=== PATIENT | male | born 1935 | race Caucasian/White ===

== ENCOUNTER 2016-06-21 23:32 | Emergency (ER) | payer MEDICARE, BC ==
[2016-06-22] MEDS ORDERED: diphenhydrAMINE HCl 25 MG CAP ONE (00:39)
== END 2016-06-22 03:35 | disposition home or self-care (01) ==
LOC: MADERS 23:32
DX: T63.461A Toxic effect of venom of wasps, accidental (unintentional), initial encounter (principal); K21.9 Gastro-esophageal reflux disease without esophagitis; I10 Essential (primary) hypertension; F17.210 Nicotine dependence, cigarettes, uncomplicated
CPT/HCPCS: 96372; J1040

== ENCOUNTER 2018-04-16 13:26 | Inpatient (IN) | payer MEDICARE, BC ==
[~2018-04-16 13:26] MED LIST: Sodium Chloride 0.9% 1,000 ML BAG ONE
[2018-04-16 14:06] LABS: Bilirubin Negative (Negative); Blood, Urine Negative (Negative); Clarity Clear (Clear); Glucose, Urine (Dipstick) Negative (Negative); Leukocyte Negative (Negative); Nitrite Negative (Negative); Protein, Urine (Dipstick) Negative (Neg-Trace); Specific Gravity, Urine 1.015 (1.005-1.030); pH, Urine 7.5 (5.0-9.0)
[2018-04-16 14:18] LABS: #Basophils 0.1 thou/uL (0.0-0.2); #Lymphocytes 0.9 thou/uL (1.20-3.40); #Monocytes 0.5 thou/uL (0.11-0.59); #Neutrophils 3.9 thou/uL (1.40-6.50); %Basophils 1.2 % (0.0-1.0); %Eosinophils 0.6 % (0.0-10.0); %Lymphocytes 16.6 % (21.0-51.0); %Monocytes 9.2 % (0.0-10.0); %Neutrophils 72.4 % (42.0-75.0); Hemoglobin 11.8 g/dL (14.0-18.0); MDiff Complete? YES; Macrocytosis SLIGHT = 6-15 cells (100X) (0-5/hpf); Mean Corpuscular HGB CONC 34.6 g/dL (32.0-36.0); Mean Corpuscular Hemoglobin 36.1 pg (27.0-31.0); Mean Corpuscular Volume 104.4 fL (78.0-98.0); Mean Platelet Volume 4.9 fL (7.4-10.4); PLT Morphology Comment Appears Adequate; Platelet Count 361 thou/uL (130-400); RBC Distribution Width 12.6 % (11.5-14.5); Red Blood Cell (RBC) Count 3.26 mill/uL (4.70-6.10); White Blood Cell (WBC) Count 5.3 thou/uL (4.8-10.8)
[2018-04-16 14:25] LABS: ALT (SGPT) 15 U/L (8-55); AST (SGOT) 28 U/L (5-34); Albumin 4.2 g/dL (3.4-4.8); Alkaline Phosphatase 69 U/L (40-150); Anion Gap 15 mmol/L (10-20); BUN (Urea Nitrogen) 23 mg/dL (8.4-25.7); Bilirubin, Total 0.9 mg/dL (0.2-1.2); Calc. Creatinine Clearance 0 mL/min (70-130); Calcium 9.3 mg/dL (7.8-10.44); Carbon Dioxide 25 mmol/L (23-31); Chloride 90 mmol/L (98-107); Estimated GFR-MDRD 49; Globulin 3.7 g/dL (2.4-3.5); Glucose 90 mg/dL (83-110); Potassium 4.3 mmol/L (3.5-5.1); Protein, Total 7.9 g/dL (5.8-8.1); Sodium 126 mmol/L (136-145)
--- NOTE | 2018-04-16 14:59 | CT ---
CT BRAIN WITHOUT CONTRAST: Date: 04/16/18 HISTORY: Fall. No loss of consciousness. Headache. FINDINGS: Comparison made with exam of 12/09/12. There are changes of cortical atrophy and chronic small vessel ischemic disease. The ventricular size is appropriate and the basilar cisterns are patent. No evidence of acute infarct, hemorrhage, midline shift, or abnormal extra-axial fluid collections ar e seen. The bony calvarium is intact. The visualized paranasal sinuses and mastoid air cells are well aerated. 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 This was seen on previous studies. IMPRESSION: No CT evidence of acute intracranial process. POS: OFF
--- NOTE | 2018-04-16 15:16 | RAD ---
PA AND LATERAL CHEST: History: Fever. History of injury. FINDINGS: Heart size is within normal limits. There are arthrosclerotic changes of the aorta. The lungs appear clear of any infiltrative process. Post-operative changes of the left shoulder is seen. There are art hritic changes of the spine. IMPRESSION: No acute findings. POS: C
--- NOTE | 2018-04-16 15:20 | CT ---
CT FACIAL BONES: Date: 04-16-18 Comparison: None. History: Fall. Trauma. Pain. Technique: Axial CT imaging obtained at 2.5 mm intervals through the facial bones without contrast. C oronal and sagittal reformatted imaging obtained. FINDINGS: The frontal sinuses, maxillary sinuses, sphenoid sinuses, and ethmoid air cells are well aerated. The mastoid air cells are well aerated. The nasal bones, zygomatic arches, and pterygoid plates appear intact with no evidence for acute frac ture or dislocation. Temporomandibular joints appear within normal limits. The mandible and the maxil la demonstrate no evidence for acute fracture. There is mild anterolisthesis of C2 on C3 and there is multilevel degenerative change involving the i bharath cervical spine with bilateral facet hypertrophy and multilevel disc space narrowing, better ass essed on the cervical spine CT, also performed 04-16-18. There is prominent atherosclerotic calcification involving the distal CCA and the proximal ICA bilate rally, left greater than right. Coronal reformatted imaging demonstrates no evidence for fracture of the orbital floor or medial orbi herminio wall on either side. IMPRESSION: 1. Incidental findings as detailed above. No displaced facial bone fracture. POS: [facility]
--- NOTE | 2018-04-16 15:21 | RAD ---
AP PELVIS: History: Fall with pelvic pain. FINDINGS: Pelvic ring appears intact with no evidence of fracture. SI Joints are symmetric. There are marked ar thritic changes to the lower lumbar spine. Vascular calcifications are present. IMPRESSION: No acute injury. POS: C
--- NOTE | 2018-04-16 15:26 | CT ---
CT OF CERVICAL SPINE PERFORMED WITHOUT CONTRAST ENHANCEMENT: HISTORY: Neck pain status post fall. FINDINGS: Vertebral bodies are normal in height. The bones appear demineralized. There is marked degenerative disk narrowing at all the vertebral body levels. There are degenerative facet changes present. The facets are in normal alignment. At C2-3, there is minimal anterolysis and a mild degree of canal stenosis and mild bilateral foramina l narrowing. There is mild bilateral foraminal stenosis at C3-4 and marked right-sided foraminal mehdi rowing at C4-5. A C5-6, there is a moderately severe canal stenosis and marked bilateral foraminal n arrowing, left greater than right. At C67, there is mild bilateral foraminal narrowing. There is no CT evidence for a fracture. The lung apices show some emphysematous-type change. Carotid bulb calcifications are noted. IMPRESSION: No CT evidence of fracture of the cervical spine. POS: [facility]
[2018-04-16] MEDS ORDERED: Acetaminophen 325 MG TAB PO PRN (16:57)
[2018-04-16 18:25] VITALS: BMI 23.1
[2018-04-16] MEDS: Sodium Chloride 0.9% 1,000 ML IV SCH (18:57)
--- NOTE | 2018-04-17 00:14 | HP ---
PRIMARY CARE PHYSICIAN: Dr. Sevilla. CHIEF COMPLAINT: Fall on 04/10/2018. HISTORY OF PRESENT ILLNESS: This is a pleasant 82-year-old male with past medical history significant for gastroesophageal reflux disease and benign prostatic hypertrophy who drove himself to the emergency room due to concern related to a fall that occurred on Friday of last week. The patient states he is not sure how he fell, but states that he hit his hip area. He states he has not had any pain or difficulty walking since then, but states he fractured his wrist in the past and it wasn't painful, so he wanted to be sure. No family is immediately available at the bedside. The patient does live at home by himself and reports that in the last month, he has actually had a total of 4 falls. He states this is not normal for him and states that sometimes he seems to get off balance and that he has been trying to modify things at home to keep him falling, but nonetheless has fallen at least 4 times. The patient at present actually has no complaints. He states he feels just fine. He is not complaining of any pain, dizziness, confusion, syncope, shortness of breath, chest pain, abdominal pain, nausea, vomiting or change in bowel movements. In the emergency room, he was found to have a very low sodium level as well as vital signs consistent with orthostatic hypotension and therefore was recommended for inpatient admission for further treatment and evaluation. PAST MEDICAL HISTORY: 1. Gastroesophageal reflux disease. 2. Benign prostatic hypertrophy. 3. History of lung nodule. PAST SURGICAL HISTORY: The patient could not recall his surgeries, med records indicate: 1. Left shoulder arthroscopic surgery. 2. Pilonidal cyst removal. 3. Hernia repair. SOCIAL HISTORY: The patient lives alone. His medical history does indicate some past history of possible alcohol dependence, but at present, the patient states he drinks only glass of wine every few days. He states he rarely drinks more than 1 glass of wine at a time. The patient does smoke about a pack a day of cigarettes. ALLERGIES: NO KNOWN DRUG ALLERGIES. FAMILY HISTORY: Noncontributory. MEDICATIONS: 1. Omeprazole 20 mg p.o. daily. 2. Terazosin - unknown dose REVIEW OF SYSTEMS: A 10-point review of systems is reviewed and negative as reported above. PHYSICAL EXAMINATION: VITAL SIGNS: Temperature is 97.4, blood pressure 126/73, heart rate 72, respirations 18, O2 saturations 98% on room air. GENERAL: The patient is alert and oriented x3. He is calm, cooperative, in no apparent distress and answering questions appropriately. HEENT: Pupils are equally round and reactive to light. Sclerae are nonicteric. Oropharynx is mildly dry without any erythema or exudates. NECK: Supple without lymphadenopathy or thyromegaly. CARDIOVASCULAR: Heart has regular rate and rhythm with no murmurs. LUNGS: Clear to auscultation bilaterally. No wheezing, rales or rhonchi. ABDOMEN: Soft, nontender, and nondistended with normoactive bowel sounds. EXTREMITIES: Negative for any clubbing, cyanosis, or edema. SKIN: Mildly dry. Right eye has some healing bruising around the periorbital area, but no tenderness to palpation. He has scattered abrasions on his extremities, but no significant ecchymosis or swelling otherwise. NEUROLOGIC: Cranial nerves 2 through 12 are grossly intact. Gait is unsteady. He uses a cane for gait stabilization, but no focal deficits. LABORATORY DATA AND IMAGING DATA: CBC with white blood cell of 5.3, hemoglobin of 11.8, hematocrit 34.1, platelets of 361. Chemistry panel reveals sodium of 126, potassium of 4.3, chloride 90, bicarbonate 25, BUN 23, creatinine 1.39, glucose is 90, lactic acid is 1.2. Liver function testing is all normal. TSH is normal at 0.847. Brain CT scan, facial bone CT scan, cervical spine CT scan, pelvis x- ray and chest x-ray were all reported as normal. EKG was unremarkable for any acute findings. The patient does have some arthritic changes on his images. ASSESSMENT AND PLAN: 1. Symptomatic hyponatremia. Per record review, the patient does appear to have a history of this over the last few years with sodium level ranging anywhere between 130 and 133 over the last 3 or 4 years. The patient, in his history, has a documented alcohol dependence, although the patient denies that at this time. The patient also admits to not drinking very much water and does appear on the dry side on examination. We will admit the patient to the inpatient medical surgical unit for IV fluids and repeat metabolic panel in the morning. I suspect that this is mostly dietary related. 2. Orthostatic hypotension. Per report from the emergency room doctor, his orthostatic vital signs were positive with at least a 10-point increase in his pulse with sitting and a significant drop in his blood pressure from the supine position. The patient did get somewhat symptomatic with this. This could be related to his hyponatremia and volume depletion and therefore, we will start him on IV fluids overnight here as well as hold his alpha rafael that he is on for his prostate as this could be contributing as well. 3. Frequent falls. The patient reports 4 falls in the last month. He lives independently and no family is immediately available for further discussion of this. The patient just basically states that he gets off balance at times and falls. I would suggest having physical therapy come to evaluate him and possibly consider him for a swing bed admission once medically stabilized versus outpatient physical therapy. We will see what physical therapy has to say in the morning. He will be on fall risk precautions for now. 4. Benign prostatic hypertrophy. We will hold his medication right now as it could potentially be contributing to that orthostatic hypotension and consider switching them to an alternative medication upon discharge. 5. Gastroesophageal reflux disease. We will continue the patient on a PPI daily. 6. Macrocytic anemia. The patient has a history of this in the past and is near his baseline of 11 to 12. He has not had a recent B12 and folic acid level checked and we will check that to be drawn in the morning. 7. Renal insufficiency. The patient will be given gentle IV fluid hydration and repeat labs in the morning. I suspect this is due to mild volume depletion. DISPOSITION: This is an 82-year-old male with past medical history significant for gastroesophageal reflux disease and benign prostatic hypertrophy that presents with frequent falls, symptomatic hyponatremia and orthostatic hypotension. We will be giving him IV fluids and I anticipate him needing at least a 2-night midnight stay given his age and severity of illness at presentation. He will possibly require a swing bed admission thereafter for continued physical therapy and occupational therapy, but we will reevaluate this on a daily basis. The patient will be on SCDs for deep venous thrombosis prophylaxis and is currently full code and we will discuss this further with the family once they arrive. Job ID: [id number] MTDD
[2018-04-17 05:20] LABS: Anion Gap 12 mmol/L (10-20); BUN (Urea Nitrogen) 22 mg/dL (8.4-25.7); Calc. Creatinine Clearance 58 mL/min (70-130); Calcium 8.4 mg/dL (7.8-10.44); Carbon Dioxide 23 mmol/L (23-31); Chloride 98 mmol/L (98-107); Estimated GFR-MDRD 64; Glucose 75 mg/dL (83-110); Potassium 4.2 mmol/L (3.5-5.1); Sodium 129 mmol/L (136-145)
[2018-04-17 05:28] LABS: #Basophils 0.1 thou/uL (0.0-0.2); #Eosinphils 0.2 thou/uL (0.0-0.7); #Lymphocytes 1.2 thou/uL (1.20-3.40); #Monocytes 0.5 thou/uL (0.11-0.59); #Neutrophils 2.5 thou/uL (1.40-6.50); %Basophils 1.4 % (0.0-1.0); %Eosinophils 3.7 % (0.0-10.0); %Lymphocytes 26.2 % (21.0-51.0); %Monocytes 11.8 % (0.0-10.0); %Neutrophils 56.9 % (42.0-75.0); Anisocytosis SLIGHT = 6-15 cells (100X) (0-5/hpf); Hemoglobin 9.8 g/dL (14.0-18.0); Hypochromia MODERATE=16-30 cells (100X) (0-5/hpf); MDiff Complete? YES; Mean Corpuscular HGB CONC 35.2 g/dL (32.0-36.0); Mean Corpuscular Hemoglobin 36.6 pg (27.0-31.0); Mean Corpuscular Volume 103.8 fL (78.0-98.0); Mean Platelet Volume 5.1 fL (7.4-10.4); PLT Morphology Comment Appears Adequate; Platelet Count 284 thou/uL (130-400); Poikilocytosis SLIGHT = 6-15 cells (100X) (0-5/hpf); RBC Distribution Width 12.4 % (11.5-14.5); RBC Morphology Abnormal; Red Blood Cell (RBC) Count 2.67 mill/uL (4.70-6.10); White Blood Cell (WBC) Count 4.4 thou/uL (4.8-10.8)
[2018-04-17] MEDS: Sodium Chloride 0.9% 1,000 ML IV SCH (05:39)
[2018-04-17 08:33] VITALS: BP 159/78; TEMP 97.6
[2018-04-17 12:50] LABS: Folate (Folic Acid) 15.3 ng/mL (7.0-31.4)
--- NOTE | 2018-04-17 13:42 | DIS ---
DATE OF ADMISSION: 04/16/2018 DATE OF DISCHARGE: 04/17/2018 PRIMARY CARE PHYSICIAN: Leo Sevilal MD. PRIMARY DIAGNOSIS: Symptomatic hyponatremia. SECONDARY DIAGNOSES: 1. Orthostatic hypotension. 2. Frequent falls. 3. Macrocytic anemia. 4. Chronic alcohol use. 5. Benign prostatic hypertrophy. 6. Gastroesophageal reflux disease. HOSPITAL COURSE: This is a pleasant 82-year-old male, who presented to the emergency room with concern over recent fall that occurred on Friday of last week. The patient states he was not having any pain or weakness, but since his fall, he wanted to make sure that he did not have anything fractured. Extensive imaging studies were done in the emergency room, that all resulted as normal. On his laboratory evaluation, he was found to have a significant hyponatremia at 126 with mild renal insufficiency with creatinine of 1.39. The patient had reported that he has had increasing falls over the last month falling on at least 4 or 5 occasions. Decision was made to admit for further treatment of his symptomatic hyponatremia and positive orthostatic vital signs in the emergency room. The patient was given IV fluids at 75 mL an hour with resolution of his symptoms this morning. The patient states today that, he is adamant, he would like to return home. He does not want to stay in the hospital any longer. The patient denies any dizziness or unbalance. Physical Therapy did see the patient and noted that he is quite unsteady on his feet, but that would benefit from a cane or walker for gait stabilization. I have called the patient's son, Chuck Whitfield, who is also the power of estate planning attorney, and the son is requesting for discharge as well, so that the patient can resume doing home healthcare physical therapy, which he did last year and worked very well for him. I discussed with the son that his chronic alcohol use and decreased water intake are likely what caused his low sodium levels and I recommend minimizing alcohol intake as much as possible and increase water intake. The son is on his way to the hospital and will be working with the primary care physician to arrange getting the home healthcare services and physical therapy services set up again through his PCP. By day of discharge, the patient is ambulating independently and at his baseline mentation status with no concerns. Vital signs have remained stable since admission. MEDICATIONS UPON DISCHARGE: The patient will resume: 1. Omeprazole 20 mg p.o. daily. 2. Flomax 0.4 mg p.o. daily. DIET UPON DISCHARGE: Resume a regular diet with recommendations for decreased alcohol intake. ACTIVITIES UPON DISCHARGE: Fall risk precautions with encouraging the patient to use cane for gait stabilization. FOLLOWUP: The patient will need to see his primary care physician in 1 to 2 weeks as well as start physical therapy on an outpatient basis. PCP will need to follow up on pending B12 and folate levels. Job ID: [id number] [facility]WORK[facility]
== END 2018-04-17 15:05 | disposition home health service (06) | DRG 641 ==
LOC: MADERS 13:26 → MADMS 16:24
PROVIDERS: ADMIT Family Medicine; ATTEND Family Medicine
DX: E87.1 Hypo-osmolality and hyponatremia (principal); I95.1 Orthostatic hypotension; N40.0 Benign prostatic hyperplasia without lower urinary tract symptoms; N28.9 Disorder of kidney and ureter, unspecified; F10.10 Alcohol abuse, uncomplicated; D53.9 Nutritional anemia, unspecified; R29.6 Repeated falls; K21.9 Gastro-esophageal reflux disease without esophagitis; I10 Essential (primary) hypertension; F17.210 Nicotine dependence, cigarettes, uncomplicated; Z98.890 Other specified postprocedural states
CPT/HCPCS: 36415; 70450; 70486; 71046; 72125; 72170; 80048; 80053; 81003; 82607; 82746; 83605; 84443; 85025; 93005; 94760; 96360; J7050

== ENCOUNTER 2018-07-11 14:34 | Emergency (ER) | payer MEDICARE, BC ==
[~2018-07-11 14:34] MED LIST changes: +Dextrose 5 % And 0.9 % NaCl 1000 ml Bag ONE; -Sodium Chloride 0.9% 1,000 ML BAG ONE
[2018-07-11 15:16] LABS: Bilirubin Negative (Negative); Blood, Urine Negative (Negative); Clarity Clear (Clear); Glucose, Urine (Dipstick) Negative (Negative); Leukocyte Negative (Negative); Nitrite Negative (Negative); Protein, Urine (Dipstick) Negative (Neg-Trace)
--- NOTE | 2018-07-11 15:23 | RAD ---
RIGHT FEMUR 2 VIEWS: Date: 07/11/18 HISTORY: Injury to leg. FINDINGS: There is an intertrochanteric fracture of the right hip with associated coxa vara deformity. Vascular calcifications are present. IMPRESSION: Intertrochanteric fracture of right hip. POS: [facility]
--- NOTE | 2018-07-11 15:31 | RAD ---
PORTABLE CHEST: Date: 07/11/18 HISTORY: Cough. COMPARISON: 07/16/08. FINDINGS: Heart size within normal limits. There are atherosclerotic changes of aorta. Lungs are clear of any i nfiltrates. IMPRESSION: No active intrathoracic disease. POS: [facility]
[2018-07-11 15:35] LABS: ALT (SGPT) 34 U/L (8-55); AST (SGOT) 158 U/L (5-34); Albumin 3.3 g/dL (3.4-4.8); Alkaline Phosphatase 37 U/L (40-150); Anion Gap 19 mmol/L (10-20); BUN (Urea Nitrogen) 46 mg/dL (8.4-25.7); CK (CPK) 2770 U/L (30-200); Calc. Creatinine Clearance 0 mL/min (70-130); Calcium 7.8 mg/dL (7.8-10.44); Carbon Dioxide 22 mmol/L (23-31); Chloride 91 mmol/L (98-107); Estimated GFR-MDRD 19; Globulin 2.4 g/dL (2.4-3.5); Glucose 77 mg/dL (83-110); Potassium 4.9 mmol/L (3.5-5.1); Protein, Total 5.7 g/dL (5.8-8.1); Sodium 127 mmol/L (136-145)
[2018-07-11 15:51] LABS: #Basophils 0.1 thou/uL (0.0-0.2); #Lymphocytes 0.6 thou/uL (1.20-3.40); #Monocytes 1.4 thou/uL (0.11-0.59); #Neutrophils 8.9 thou/uL (1.40-6.50); %Basophils 0.7 % (0.0-1.0); %Lymphocytes 5.4 % (21.0-51.0); %Monocytes 12.5 % (0.0-10.0); %Neutrophils 81.4 % (42.0-75.0); Hemoglobin 8.3 g/dL (14.0-18.0); Hypochromia SLIGHT = 6-15 cells (100X) (0-5/hpf); MDiff Complete? YES; Macrocytosis SLIGHT = 6-15 cells (100X) (0-5/hpf); Mean Corpuscular HGB CONC 34.8 g/dL (32.0-36.0); Mean Corpuscular Hemoglobin 35.8 pg (27.0-31.0); Mean Corpuscular Volume 102.6 fL (78.0-98.0); Mean Platelet Volume 4.9 fL (7.4-10.4); Platelet Count 318 thou/uL (130-400); Polychromasia SLIGHT = 2-3 cells (100X) (0-2/hpf); RBC Distribution Width 14.4 % (11.5-14.5); Red Blood Cell (RBC) Count 2.31 mill/uL (4.70-6.10); White Blood Cell (WBC) Count 10.9 thou/uL (4.8-10.8)
[2018-07-11 16:26] LABS: CKMB 17.3 ng/mL (0-6.6)
--- NOTE | 2018-07-11 16:38 | CT ---
CT OF BRAIN PERFORMED WITHOUT CONTRAST ENHANCEMENT: 07/11/18 HISTORY: Altered mental status. Fall two days ago with head injury. COMPARISON: 04/16/18 study. There is marked generalized ventricular and sulcal prominence. There is decreased attenuation of the periventricular white matter. There is no signs of intracerebral hemorrhage or extra-axial fluid ba ections. The mastoid air cells and visualized sinuses are clears. IMPRESSION: No acute intracranial abnormalities. POS: [facility]
[2018-07-11] MEDS ORDERED: Aspirin 300 MG Suppository ONE (16:49)
== END 2018-07-11 17:23 | disposition short-term general hospital (02) ==
LOC: MADERS 14:34
DX: S72.141A Displaced intertrochanteric fracture of right femur, initial encounter for closed fracture (principal); I21.4 Non-ST elevation (NSTEMI) myocardial infarction; E87.1 Hypo-osmolality and hyponatremia; R41.82 Altered mental status, unspecified; K21.9 Gastro-esophageal reflux disease without esophagitis; I10 Essential (primary) hypertension; F17.210 Nicotine dependence, cigarettes, uncomplicated; E16.2 Hypoglycemia, unspecified; W18.30XA Fall on same level, unspecified, initial encounter
CPT/HCPCS: 36415; 36416; 70450; 71045; 80053; 81003; 82550; 82553; 84443; 84484; 85025; 93005; 96360; 96361; J7042

== ENCOUNTER 2018-07-16 11:49 | Inpatient (IN) | payer MEDICARE, BC ==
[2018-07-16] MEDS ORDERED: Prevnar 13-Val Conj/PF 0.5 ML SYRINGE IM ONE (15:30)
[2018-07-16] MEDS ORDERED: TESTOSTERONE CYPIONATE IM SCH (18:15)
[2018-07-16] MEDS: Mometasone/Formoterol 60 PUFF AER INH SCH (20:00)
[2018-07-16] MEDS: Nicotine 7 MG PATCH TOP SCH (20:01)
[2018-07-16] MEDS: Acetaminophen 500 MG TAB PO SCH (20:02)
[2018-07-16] MEDS: Aspirin 81 mg Enteric Coated Tablet PO SCH (20:04)
[2018-07-16] MEDS ORDERED: Ventolin HFA Inhaler 60 PUFF INHALER INH PRN (21:00)
--- NOTE | 2018-07-16 23:51 | HP ---
PRIMARY CARE PHYSICIAN: Leo Sevilla MD REASON FOR ADMISSION: Skilled rehab in [facility] Swing Bed after recent surgery. HISTORY OF PRESENT ILLNESS AND HOSPITAL COURSE: Mr. Whitfield is an 82-year- old male, who has a significant history of chronic hyponatremia, alcohol abuse, and hypertension. He lives by himself in [place]. History was taken from his son, who was present at the time of admission. Son reports that the patient's baseline functional status is, he lives independently, but with some unsteadiness of gait. He occasionally uses his cane, but not consistently. The son reports that when he tried to call the patient last week, on , the patient did not answer until the next day, which is unusual. The son went to the patient's house where he lives and found that the patient was on the floor in his bedroom. The son reports that he would probably been down on the floor for about 48 to 72 hours without movement. The patient was then sent to the ER, wherein he was found to have significant dehydration, as well as right intertrochanteric femoral fracture, as well as rhabdomyolysis. The patient was medically stabilized. Ortho was consulted. The patient underwent repair of the right intertrochanteric femoral fracture with TFN nail to the right proximal femoral on 07/14/[address] Vann. Postoperatively, the patient did well. Postoperative complications include acute anemia, wherein he was transfused with 1 unit of packed red blood cells. Overall, his electrolytes, renal function, and CK were improving with medical therapy. Physical therapy and occupational therapy were started in the hospital prior to transfer. There was also mention of delirium postoperatively. His Celexa was continued. He was also taking Flomax and Avodart was added to his current medications for BPH. The patient was discharged to swing bed with his Wen catheter due to persistent urinary retention. He was transferred to [place] to continue therapy prior to going back to the home environment. PAST MEDICAL HISTORY: GERD, prostate problem, hypertension, chronic hyponatremia, chronic alcoholism, unsteadiness of gait, history of falls at home , anxiety, and depression. PAST SURGICAL HISTORY: Left shoulder. SOCIAL HISTORY: The patient lives alone in [place]. Smokes a pack a day for the last 60 years. Chronic alcohol use. Son is the power of assistant attorney general, who lives in [place], but is actively involved in patient's care. ALLERGIES: NKDA. MEDICATIONS: 1. Acetaminophen 5000 one to two tablets q.6 hours p.r.n. 2. Albuterol HFA 2 puffs inhaled q.4 hours p.r.n. 3. Ascorbic acid 500 mg p.o. b.i.d. 4. Aspirin 81 mg p.o. b.i.d. 5. Symbicort 160/4.5, one puff inhaled b.i.d. 6. Citalopram 20 mg p.o. daily. 7. Avodart 0.5 mg p.o. daily. 8. Ferrous sulfate 325 mg p.o. b.i.d. 9. Folic acid 1 mg p.o. daily. 10. Nicotine patch 14 mg TD q.24 hours. 11. Omeprazole 40 mg p.o. daily. 12. Tamsulosin 0.4 mg p.o. daily. 13. Testosterone cypionate 1.5 mL IM q.14 days. 14. Tramadol 50 mg p.o. q.6 hours p.r.n. REVIEW OF SYSTEMS: Limited secondary to the patient's hard of hearing. Otherwise, the son, who helps with the history, reports that the patient remains generally weak with decreased appetite, but getting better, previously continent of bowel and bladder. No significant chest pain, shortness of breath, pain with breathing, orthopnea, nausea, vomiting, abdominal pain, diarrhea, or rectal bleeding. Reports history of constipation. No black tarry stools. No focal paralysis or paresthesia. The rest of the review of system as per HPI. RECENT LAB/TESTS: Echocardiogram on 07/12/2018, EF 50% to 55%, grade 1/3 diastolic dysfunction. Mildly dilated left atrium. Mitral annular calcification is present. Trace mitral regurgitation, aortic valve sclerosis, but opens well. Mild tricuspid regurgitation, elevated right ventricular systolic pressure, estimated 43 mmHg. Abdominal x-ray, moderate stool burden, no acute intraabdominal abnormality on 07/15/2018. On 07/15/2018, CBC; WBC 7.3, hemoglobin 8.5, hematocrit 24.9, platelets 329. On 07/14/2018, CBC; hemoglobin 7.2, hematocrit 20.8, platelets 318. CK on 07/14, 506. CK on 07/13/2018, 953, CK-MB was 9.4. 07/15/2018, BMP; sodium 130, potassium 3.7, BUN 20, creatinine 0.97, estimated GFR 74, glucose 81, calcium 7.7, phosphorus 2.6, magnesium 1.8. Urine negative. Toxicology, salicylate less than 8, acetaminophen less than 6, plasma alcohol less than 10. PHYSICAL EXAMINATION: VITAL SIGNS: Blood pressure 175/79, temp 97.8, pulse 83, respiration 18, O2 saturations 95%, weight 138 pounds, height 6 feet 8 inches, BMI 18.7. GENERAL: The patient is awake, alert, oriented, but hard of hearing. He answers with appropriateness if he hears the question/s appropriately. HEENT: Normocephalic and atraumatic. PERRL. Intact EOM. Nonicteric sclera. Oral mucosa is moist. NECK: Supple. No LAD. No JVD. No bruit. CHEST: Normal excursion. Clear to auscultation bilaterally. CARDIAC: RRR. Normal S1 and S2. ABDOMEN: Flat, soft. Normoactive bowel sounds. Nondistended, nontender. No rebound. No guarding. Negative CVA tenderness bilaterally. EXTREMITIES: No edema. No cyanosis. SKIN: Postoperative site in the right femur is intact and no surrounding erythema. No drainage. No edema. Multiple bruises noted (refer to the wound photo for details) and pressure ulcer stage II on the right medial knee and left medial knee. NEURO: Nonfocal. Moves all extremities symmetrically. Gait, unsteady. DTRs 2 +. PSYCH: Appears calm with appropriate demeanor and affect. ASSESSMENT: 1. Deconditioning secondary to general weakness. 2. Right intertrochanteric femoral fracture, status post repair on 07/14/2018. 3. Rhabdomyolysis, resolving. 4. Dehydration, resolved. 5. Chronic macrocytic anemia superimposed with acute anemia secondary to blood loss, requiring blood transfusion. 6. Chronic hyponatremia, mild, asymptomatic. 7. History of chronic alcohol use. 8. Acute on chronic renal injury, improved. 9. Acute hypokalemia, improved. 10. Acute hypophosphatemia, improved. 11. Acute hypomagnesemia, improved. 12. Anxiety. 13. Depression. 14. Benign prostatic hyperplasia, with obstructive symptoms, requiring insertion of indwelling urinary catheter. 15. Abnormality of gait and immobility secondary to imbalance. PLAN: The patient is admitted to [facility] for purposes of skilled rehab. PT/OT eval and treat. Weightbearing status, 50% weightbearing on the right lower extremities. Routine wound care, postoperative wound care and pressure ulcer care. Continue all current medications as modified per list.. DVT prophylaxis with aspirin. CODE STATUS: Son reports and confirms DO NOT ATTEMPT RESUSCITATION. ESTIMATED LENGTH OF STAY: 2-3 weeks. Further recommendations depending on the hospital course. Job ID: [id number] MTDD
[2018-07-17 01:45] LABS: Bilirubin Negative (Negative); Blood, Urine Trace (Negative); Clarity Clear (Clear); Glucose, Urine (Dipstick) Negative (Negative); Leukocyte Small (Negative); Nitrite Negative (Negative); Protein, Urine (Dipstick) Trace mg/dL (Neg-Trace); Specific Gravity, Urine 1.015 (1.005-1.030); pH, Urine 6.5 (5.0-9.0)
[2018-07-17 01:52] LABS: RBC/HPF 0-3 HPF (0-3); Squamous Epithelial 0-3 HPF (0-3)
[2018-07-17 01:53] LABS: Bacteria/HPF Rare-Few HPF (None Seen); Hyaline Casts/LPF NONE SEEN LPF (0-3 Hyaline)
[2018-07-17] MEDS: Acetaminophen 500 MG TAB PO SCH ×4 (03:44→20:57)
[2018-07-17] MEDS: Mometasone/Formoterol 60 PUFF AER INH SCH ×2 (07:46→18:26)
[2018-07-17] MEDS: Aspirin 81 mg Enteric Coated Tablet PO SCH ×2 (09:21→20:58)
[2018-07-17] MEDS: Ascorbic Acid 500 mg Chewable Tablet PO SCH ×2 (09:21→17:05)
[2018-07-17] MEDS: Citalopram 20 MG TAB PO SCH (09:21)
[2018-07-17] MEDS: Dutasteride 0.5 MG CAP PO SCH (09:21)
[2018-07-17] MEDS: Ferrous Sulfate 325 MG TAB PO SCH ×2 (09:21→17:05)
[2018-07-17] MEDS: Tamsulosin HCl 0.4 MG CAP PO SCH (09:21)
[2018-07-17] MEDS: Folic Acid 1 MG TAB PO SCH (09:22)
[2018-07-17] MEDS: traMADol HCl 50 MG TAB PO PRN (10:44)
[2018-07-17] MEDS: Nicotine 7 MG PATCH TOP SCH (18:26)
[2018-07-18] MEDS: Acetaminophen 500 MG TAB PO SCH ×4 (04:41→20:23)
[2018-07-18] MEDS: Mometasone/Formoterol 60 PUFF AER INH SCH ×2 (08:19→18:16)
[2018-07-18] MEDS: Dutasteride 0.5 MG CAP PO SCH (08:20)
[2018-07-18] MEDS: Folic Acid 1 MG TAB PO SCH (08:21)
[2018-07-18] MEDS: Ferrous Sulfate 325 MG TAB PO SCH ×2 (08:21→17:01)
[2018-07-18] MEDS: Aspirin 81 mg Enteric Coated Tablet PO SCH ×2 (08:21→20:24)
[2018-07-18] MEDS: Citalopram 20 MG TAB PO SCH (08:21)
[2018-07-18] MEDS: Ascorbic Acid 500 mg Chewable Tablet PO SCH ×2 (08:21→17:01)
[2018-07-18] MEDS: Tamsulosin HCl 0.4 MG CAP PO SCH (08:21)
[2018-07-18] MEDS ORDERED: Sodium Chloride Irrig Solution 250 ML BOT ONE (09:03)
[2018-07-18] MEDS: Nicotine 7 MG PATCH TOP SCH (18:16)
[2018-07-19] MEDS: Acetaminophen 500 MG TAB PO SCH ×4 (02:50→20:36)
[2018-07-19] MEDS: Mometasone/Formoterol 60 PUFF AER INH SCH ×2 (08:05→18:13)
[2018-07-19] MEDS: Aspirin 81 mg Enteric Coated Tablet PO SCH ×2 (08:08→20:36)
[2018-07-19] MEDS: Dutasteride 0.5 MG CAP PO SCH (08:15)
[2018-07-19] MEDS: Folic Acid 1 MG TAB PO SCH (08:16)
[2018-07-19] MEDS: Ascorbic Acid 500 mg Chewable Tablet PO SCH ×2 (08:16→17:15)
[2018-07-19] MEDS: Citalopram 20 MG TAB PO SCH (08:16)
[2018-07-19] MEDS: Tamsulosin HCl 0.4 MG CAP PO SCH (08:16)
[2018-07-19] MEDS: Ferrous Sulfate 325 MG TAB PO SCH ×2 (08:16→17:15)
[2018-07-19] MEDS: Nicotine 7 MG PATCH TOP SCH (18:14)
[2018-07-20] MEDS: Acetaminophen 500 MG TAB PO SCH ×4 (04:28→20:29)
[2018-07-20] MEDS: Mometasone/Formoterol 60 PUFF AER INH SCH ×2 (07:30→19:18)
[2018-07-20] MEDS: Tamsulosin HCl 0.4 MG CAP PO SCH (08:51)
[2018-07-20] MEDS: Aspirin 81 mg Enteric Coated Tablet PO SCH ×2 (08:51→20:29)
[2018-07-20] MEDS: Ascorbic Acid 500 mg Chewable Tablet PO SCH ×2 (08:51→17:15)
[2018-07-20] MEDS: Folic Acid 1 MG TAB PO SCH (08:51)
[2018-07-20] MEDS: Citalopram 20 MG TAB PO SCH (08:51)
[2018-07-20] MEDS: Ferrous Sulfate 325 MG TAB PO SCH ×2 (08:51→17:15)
[2018-07-20] MEDS: Dutasteride 0.5 MG CAP PO SCH (08:51)
[2018-07-20] MEDS: Nicotine 7 MG PATCH TOP SCH (19:19)
[2018-07-21] MEDS: Acetaminophen 500 MG TAB PO SCH ×4 (04:00→20:52)
[2018-07-21] MEDS: Mometasone/Formoterol 60 PUFF AER INH SCH ×2 (06:00→19:05)
[2018-07-21] MEDS: Aspirin 81 mg Enteric Coated Tablet PO SCH ×2 (08:22→20:53)
[2018-07-21] MEDS: Ferrous Sulfate 325 MG TAB PO SCH ×2 (08:22→17:16)
[2018-07-21] MEDS: Ascorbic Acid 500 mg Chewable Tablet PO SCH ×2 (08:23→17:16)
[2018-07-21] MEDS: Dutasteride 0.5 MG CAP PO SCH (08:23)
[2018-07-21] MEDS: Folic Acid 1 MG TAB PO SCH (08:23)
[2018-07-21] MEDS: Tamsulosin HCl 0.4 MG CAP PO SCH (08:23)
[2018-07-21] MEDS: Citalopram 20 MG TAB PO SCH (08:23)
[2018-07-21] MEDS: Nicotine 7 MG PATCH TOP SCH (19:11)
[2018-07-22] MEDS: Acetaminophen 500 MG TAB PO SCH ×4 (02:04→20:42)
[2018-07-22] MEDS: Ascorbic Acid 500 mg Chewable Tablet PO SCH ×2 (08:19→16:58)
[2018-07-22] MEDS: Mometasone/Formoterol 60 PUFF AER INH SCH ×2 (08:19→20:42)
[2018-07-22] MEDS: Ferrous Sulfate 325 MG TAB PO SCH ×2 (08:19→16:58)
[2018-07-22] MEDS: Aspirin 81 mg Enteric Coated Tablet PO SCH ×2 (08:19→20:41)
[2018-07-22] MEDS: Tamsulosin HCl 0.4 MG CAP PO SCH (08:20)
[2018-07-22] MEDS: Citalopram 20 MG TAB PO SCH (08:20)
[2018-07-22] MEDS: Folic Acid 1 MG TAB PO SCH (08:20)
[2018-07-22] MEDS: Dutasteride 0.5 MG CAP PO SCH (08:23)
[2018-07-22] MEDS ORDERED: TESTOSTERONE CYPIONATE IM SCH (09:00)
[2018-07-22] MEDS: Nicotine 7 MG PATCH TOP SCH (20:41)
[2018-07-23] MEDS: Acetaminophen 500 MG TAB PO SCH ×4 (03:31→21:04)
[2018-07-23] MEDS: Mometasone/Formoterol 60 PUFF AER INH SCH ×2 (07:55→21:03)
[2018-07-23] MEDS: Ascorbic Acid 500 mg Chewable Tablet PO SCH ×2 (08:55→17:02)
[2018-07-23] MEDS: Ferrous Sulfate 325 MG TAB PO SCH ×2 (08:55→17:02)
[2018-07-23] MEDS: Aspirin 81 mg Enteric Coated Tablet PO SCH ×2 (08:56→21:05)
[2018-07-23] MEDS: Citalopram 20 MG TAB PO SCH (08:56)
[2018-07-23] MEDS: Dutasteride 0.5 MG CAP PO SCH (08:57)
[2018-07-23] MEDS: Folic Acid 1 MG TAB PO SCH (08:57)
[2018-07-23] MEDS: Tamsulosin HCl 0.4 MG CAP PO SCH (08:58)
[2018-07-23] MEDS ORDERED: TESTOSTERONE CYPIONATE IM SCH ×2 (12:00→14:00)
[2018-07-23] MEDS: Nicotine 7 MG PATCH TOP SCH (21:04)
[2018-07-24] MEDS: Acetaminophen 500 MG TAB PO SCH ×4 (03:26→21:11)
[2018-07-24 06:05] LABS: Anisocytosis SLIGHT = 6-15 cells (100X) (0-5/hpf); Eosinophils 4 % (0-10); Hemoglobin 8.3 g/dL (14.0-18.0); Hypochromia MODERATE=16-30 cells (100X) (0-5/hpf); Lymphocytes 9 % (21-51); MDiff Complete? YES; Macrocytosis MODERATE=16-30 cells (100X) (0-5/hpf); Mean Corpuscular HGB CONC 32.8 g/dL (32.0-36.0); Mean Corpuscular Hemoglobin 34.3 pg (27.0-31.0); Mean Corpuscular Volume 104.8 fL (78.0-98.0); Mean Platelet Volume 4.9 fL (7.4-10.4); Monocytes 5 % (0-10); Neutrophil 82 % (42-75); Platelet Count 269 thou/uL (130-400); Platelet Morphology Comment Appears Adequate; Poikilocytosis SLIGHT = 6-15 cells (100X) (0-5/hpf); RBC Distribution Width 16.8 % (11.5-14.5); RBC Morphology Abnormal; Red Blood Cell (RBC) Count 2.41 mill/uL (4.70-6.10); White Blood Cell (WBC) Count 7.6 thou/uL (4.8-10.8)
[2018-07-24] MEDS: Mometasone/Formoterol 60 PUFF AER INH SCH ×2 (07:25→18:23)
[2018-07-24] MEDS: Ascorbic Acid 500 mg Chewable Tablet PO SCH ×2 (07:28→16:12)
[2018-07-24] MEDS: Ferrous Sulfate 325 MG TAB PO SCH ×2 (07:28→16:12)
[2018-07-24] MEDS: Aspirin 81 mg Enteric Coated Tablet PO SCH ×2 (08:30→21:11)
[2018-07-24] MEDS: Folic Acid 1 MG TAB PO SCH (08:30)
[2018-07-24] MEDS: Citalopram 20 MG TAB PO SCH (08:30)
[2018-07-24] MEDS: Dutasteride 0.5 MG CAP PO SCH (08:30)
[2018-07-24] MEDS: Tamsulosin HCl 0.4 MG CAP PO SCH (08:30)
[2018-07-24] MEDS: Nicotine 7 MG PATCH TOP SCH (18:23)
[2018-07-25] MEDS: Acetaminophen 500 MG TAB PO SCH ×4 (03:30→20:23)
[2018-07-25] MEDS: Mometasone/Formoterol 60 PUFF AER INH SCH ×2 (08:16→20:20)
[2018-07-25] MEDS: Tamsulosin HCl 0.4 MG CAP PO SCH (08:17)
[2018-07-25] MEDS: Ascorbic Acid 500 mg Chewable Tablet PO SCH ×2 (08:17→17:01)
[2018-07-25] MEDS: Folic Acid 1 MG TAB PO SCH (08:17)
[2018-07-25] MEDS: Ferrous Sulfate 325 MG TAB PO SCH ×2 (08:17→17:00)
[2018-07-25] MEDS: Aspirin 81 mg Enteric Coated Tablet PO SCH ×2 (08:18→20:23)
[2018-07-25] MEDS: Citalopram 20 MG TAB PO SCH (08:18)
[2018-07-25] MEDS: Dutasteride 0.5 MG CAP PO SCH (08:18)
[2018-07-25] MEDS: Nicotine 7 MG PATCH TOP SCH (20:21)
[2018-07-26] MEDS: Acetaminophen 500 MG TAB PO SCH ×4 (03:20→20:58)
[2018-07-26] MEDS: Dutasteride 0.5 MG CAP PO SCH (08:08)
[2018-07-26] MEDS: Folic Acid 1 MG TAB PO SCH (08:08)
[2018-07-26] MEDS: Mometasone/Formoterol 60 PUFF AER INH SCH ×2 (08:08→18:53)
[2018-07-26] MEDS: Tamsulosin HCl 0.4 MG CAP PO SCH (08:08)
[2018-07-26] MEDS: Citalopram 20 MG TAB PO SCH (08:09)
[2018-07-26] MEDS: Ferrous Sulfate 325 MG TAB PO SCH ×2 (08:09→16:47)
[2018-07-26] MEDS: Aspirin 81 mg Enteric Coated Tablet PO SCH ×2 (08:09→20:58)
[2018-07-26] MEDS: Ascorbic Acid 500 mg Chewable Tablet PO SCH ×2 (08:09→16:47)
[2018-07-26] MEDS: Nicotine 7 MG PATCH TOP SCH (18:53)
[2018-07-27] MEDS: Acetaminophen 500 MG TAB PO SCH ×4 (02:23→20:31)
[2018-07-27] MEDS: Mometasone/Formoterol 60 PUFF AER INH SCH ×2 (06:28→20:29)
[2018-07-27] MEDS: Ascorbic Acid 500 mg Chewable Tablet PO SCH ×2 (07:42→17:11)
[2018-07-27] MEDS: Ferrous Sulfate 325 MG TAB PO SCH ×2 (07:42→17:11)
[2018-07-27] MEDS: Dutasteride 0.5 MG CAP PO SCH (08:49)
[2018-07-27] MEDS: Citalopram 20 MG TAB PO SCH (08:50)
[2018-07-27] MEDS: Tamsulosin HCl 0.4 MG CAP PO SCH (08:50)
[2018-07-27] MEDS: Aspirin 81 mg Enteric Coated Tablet PO SCH ×2 (08:50→20:31)
[2018-07-27] MEDS: Folic Acid 1 MG TAB PO SCH (08:50)
[2018-07-27] MEDS: Nicotine 7 MG PATCH TOP SCH (20:29)
[2018-07-28] MEDS: Acetaminophen 500 MG TAB PO SCH ×4 (02:59→20:44)
[2018-07-28] MEDS: Mometasone/Formoterol 60 PUFF AER INH SCH ×2 (08:27→20:44)
[2018-07-28] MEDS: Ascorbic Acid 500 mg Chewable Tablet PO SCH ×2 (08:28→16:54)
[2018-07-28] MEDS: Dutasteride 0.5 MG CAP PO SCH (08:29)
[2018-07-28] MEDS: Citalopram 20 MG TAB PO SCH (08:29)
[2018-07-28] MEDS: Aspirin 81 mg Enteric Coated Tablet PO SCH ×2 (08:29→20:45)
[2018-07-28] MEDS: Ferrous Sulfate 325 MG TAB PO SCH ×2 (08:29→16:55)
[2018-07-28] MEDS: Tamsulosin HCl 0.4 MG CAP PO SCH (08:30)
[2018-07-28] MEDS: Folic Acid 1 MG TAB PO SCH (08:30)
[2018-07-28] MEDS: Nicotine 7 MG PATCH TOP SCH (20:43)
[2018-07-29] MEDS: Acetaminophen 500 MG TAB PO SCH ×4 (04:11→20:44)
[2018-07-29] MEDS: Mometasone/Formoterol 60 PUFF AER INH SCH ×2 (07:40→17:43)
[2018-07-29] MEDS: Ferrous Sulfate 325 MG TAB PO SCH ×2 (07:42→16:50)
[2018-07-29] MEDS: Ascorbic Acid 500 mg Chewable Tablet PO SCH ×2 (07:43→16:50)
[2018-07-29] MEDS: Aspirin 81 mg Enteric Coated Tablet PO SCH ×2 (08:31→20:44)
[2018-07-29] MEDS: Folic Acid 1 MG TAB PO SCH (08:31)
[2018-07-29] MEDS: Tamsulosin HCl 0.4 MG CAP PO SCH (08:32)
[2018-07-29] MEDS: Dutasteride 0.5 MG CAP PO SCH (08:32)
[2018-07-29] MEDS: Citalopram 20 MG TAB PO SCH (08:32)
[2018-07-29] MEDS: Nicotine 7 MG PATCH TOP SCH (17:42)
[2018-07-30] MEDS: Acetaminophen 500 MG TAB PO SCH ×4 (03:40→20:41)
[2018-07-30] MEDS: Dutasteride 0.5 MG CAP PO SCH (08:20)
[2018-07-30] MEDS: Aspirin 81 mg Enteric Coated Tablet PO SCH ×2 (08:21→20:42)
[2018-07-30] MEDS: Folic Acid 1 MG TAB PO SCH (08:21)
[2018-07-30] MEDS: Mometasone/Formoterol 60 PUFF AER INH SCH ×2 (08:21→18:25)
[2018-07-30] MEDS: Tamsulosin HCl 0.4 MG CAP PO SCH (08:21)
[2018-07-30] MEDS: Ascorbic Acid 500 mg Chewable Tablet PO SCH ×2 (08:21→17:04)
[2018-07-30] MEDS: Citalopram 20 MG TAB PO SCH (08:21)
[2018-07-30] MEDS: Ferrous Sulfate 325 MG TAB PO SCH ×2 (08:21→17:05)
[2018-07-30] MEDS: Nicotine 7 MG PATCH TOP SCH (18:25)
[2018-07-31] MEDS: Acetaminophen 500 MG TAB PO SCH ×4 (04:59→20:23)
[2018-07-31] MEDS: Tamsulosin HCl 0.4 MG CAP PO SCH (08:44)
[2018-07-31] MEDS: Dutasteride 0.5 MG CAP PO SCH (08:44)
[2018-07-31] MEDS: Ferrous Sulfate 325 MG TAB PO SCH ×2 (08:44→17:11)
[2018-07-31] MEDS: Citalopram 20 MG TAB PO SCH (08:44)
[2018-07-31] MEDS: Aspirin 81 mg Enteric Coated Tablet PO SCH ×2 (08:44→20:23)
[2018-07-31] MEDS: Folic Acid 1 MG TAB PO SCH (08:44)
[2018-07-31] MEDS: Ascorbic Acid 500 mg Chewable Tablet PO SCH ×2 (08:44→17:11)
[2018-07-31] MEDS: Mometasone/Formoterol 60 PUFF AER INH SCH ×2 (08:45→20:23)
[2018-07-31] MEDS: Nicotine 7 MG PATCH TOP SCH (20:21)
[2018-07-31] MEDS: traMADol HCl 50 MG TAB PO PRN (23:36)
[2018-08-01] MEDS: Acetaminophen 500 MG TAB PO SCH ×4 (05:19→20:16)
[2018-08-01] MEDS: Mometasone/Formoterol 60 PUFF AER INH SCH ×2 (08:55→19:34)
[2018-08-01] MEDS: Citalopram 20 MG TAB PO SCH (08:56)
[2018-08-01] MEDS: Folic Acid 1 MG TAB PO SCH (08:56)
[2018-08-01] MEDS: Tamsulosin HCl 0.4 MG CAP PO SCH (08:56)
[2018-08-01] MEDS: Dutasteride 0.5 MG CAP PO SCH (08:56)
[2018-08-01] MEDS: Aspirin 81 mg Enteric Coated Tablet PO SCH ×2 (08:57→20:16)
[2018-08-01] MEDS: Ascorbic Acid 500 mg Chewable Tablet PO SCH ×2 (08:57→17:02)
[2018-08-01] MEDS: Ferrous Sulfate 325 MG TAB PO SCH ×2 (08:57→17:02)
[2018-08-01] MEDS: Nicotine 7 MG PATCH TOP SCH (19:32)
[2018-08-01] MEDS: traMADol HCl 50 MG TAB PO PRN (20:15)
[2018-08-02] MEDS: Acetaminophen 500 MG TAB PO SCH ×4 (03:25→20:45)
[2018-08-02] MEDS: Mometasone/Formoterol 60 PUFF AER INH SCH ×2 (06:03→19:25)
[2018-08-02] MEDS: Citalopram 20 MG TAB PO SCH (08:27)
[2018-08-02] MEDS: Aspirin 81 mg Enteric Coated Tablet PO SCH ×2 (08:27→20:45)
[2018-08-02] MEDS: Ferrous Sulfate 325 MG TAB PO SCH ×2 (08:27→17:19)
[2018-08-02] MEDS: Ascorbic Acid 500 mg Chewable Tablet PO SCH ×2 (08:27→17:19)
[2018-08-02] MEDS: Folic Acid 1 MG TAB PO SCH (08:28)
[2018-08-02] MEDS: Tamsulosin HCl 0.4 MG CAP PO SCH (08:28)
[2018-08-02] MEDS: Dutasteride 0.5 MG CAP PO SCH (08:28)
[2018-08-02] MEDS: Nicotine 7 MG PATCH TOP SCH (19:25)
[2018-08-03] MEDS: Acetaminophen 500 MG TAB PO SCH ×4 (04:08→20:21)
[2018-08-03] MEDS: Mometasone/Formoterol 60 PUFF AER INH SCH ×2 (08:47→19:21)
[2018-08-03] MEDS: Tamsulosin HCl 0.4 MG CAP PO SCH (08:49)
[2018-08-03] MEDS: Aspirin 81 mg Enteric Coated Tablet PO SCH ×2 (08:49→20:21)
[2018-08-03] MEDS: Ferrous Sulfate 325 MG TAB PO SCH ×2 (08:49→17:01)
[2018-08-03] MEDS: Citalopram 20 MG TAB PO SCH (08:49)
[2018-08-03] MEDS: Ascorbic Acid 500 mg Chewable Tablet PO SCH ×2 (08:50→17:01)
[2018-08-03] MEDS: Dutasteride 0.5 MG CAP PO SCH (08:50)
[2018-08-03] MEDS: Folic Acid 1 MG TAB PO SCH (08:50)
[2018-08-03] MEDS: Nicotine 7 MG PATCH TOP SCH (19:22)
[2018-08-03] MEDS: traMADol HCl 50 MG TAB PO PRN (22:44)
[2018-08-04] MEDS: Acetaminophen 500 MG TAB PO SCH ×4 (02:18→19:58)
[2018-08-04] MEDS: Ferrous Sulfate 325 MG TAB PO SCH ×2 (08:00→16:43)
[2018-08-04] MEDS: Ascorbic Acid 500 mg Chewable Tablet PO SCH ×2 (08:00→16:43)
[2018-08-04] MEDS: Citalopram 20 MG TAB PO SCH (09:00)
[2018-08-04] MEDS: Mometasone/Formoterol 60 PUFF AER INH SCH ×2 (09:00→19:56)
[2018-08-04 10:25] LABS: Bilirubin Negative (Negative); Blood, Urine Trace (Negative); Clarity Slightly Cloudy (Clear); Glucose, Urine (Dipstick) Negative (Negative); Leukocyte Large (Negative); Nitrite Positive (Negative); Protein, Urine (Dipstick) Trace mg/dL (Neg-Trace); Specific Gravity, Urine 1.015 (1.005-1.030)
[2018-08-04 10:30] LABS: Bacteria/HPF 2+ HPF (None Seen); RBC/HPF 0-3 HPF (0-3); Squamous Epithelial 0-3 HPF (0-3)
[2018-08-04] MEDS: Folic Acid 1 MG TAB PO SCH (12:21)
[2018-08-04] MEDS: Aspirin 81 mg Enteric Coated Tablet PO SCH ×2 (12:21→19:59)
[2018-08-04] MEDS: Dutasteride 0.5 MG CAP PO SCH (12:21)
[2018-08-04] MEDS: Tamsulosin HCl 0.4 MG CAP PO SCH (12:21)
[2018-08-04] MEDS ORDERED: Cipro 250 MG TAB PO SCH (15:15)
[2018-08-04] MEDS ORDERED: Nicotine 7 MG PATCH TOP SCH (19:00)
[2018-08-04] MEDS: Cipro 250 MG TAB PO SCH (19:58)
[2018-08-05] MEDS: Acetaminophen 500 MG TAB PO SCH ×4 (03:20→20:35)
[2018-08-05] MEDS: Cipro 250 MG TAB PO SCH ×2 (05:39→19:24)
[2018-08-05] MEDS: Mometasone/Formoterol 60 PUFF AER INH SCH ×2 (07:55→19:22)
[2018-08-05] MEDS: Ascorbic Acid 500 mg Chewable Tablet PO SCH ×2 (09:05→17:21)
[2018-08-05] MEDS: Ferrous Sulfate 325 MG TAB PO SCH ×2 (09:05→17:21)
[2018-08-05] MEDS: Dutasteride 0.5 MG CAP PO SCH (09:06)
[2018-08-05] MEDS: Tamsulosin HCl 0.4 MG CAP PO SCH (09:06)
[2018-08-05] MEDS: Folic Acid 1 MG TAB PO SCH (09:06)
[2018-08-05] MEDS: Citalopram 20 MG TAB PO SCH (09:10)
[2018-08-05] MEDS: Aspirin 81 mg Enteric Coated Tablet PO SCH ×2 (09:10→20:35)
[2018-08-05] MEDS ORDERED: Lantiseptic Ointment 130 GM JAR TOP PRN (19:06)
[2018-08-05] MEDS: Nicotine 7 MG PATCH TOP SCH (19:24)
[2018-08-06] MEDS: Acetaminophen 500 MG TAB PO SCH ×4 (03:57→20:34)
[2018-08-06] MEDS: Cipro 250 MG TAB PO SCH ×2 (05:47→19:35)
[2018-08-06] MEDS: Mometasone/Formoterol 60 PUFF AER INH SCH ×2 (06:00→18:24)
[2018-08-06] MEDS: Ferrous Sulfate 325 MG TAB PO SCH ×2 (08:09→17:11)
[2018-08-06] MEDS: Dutasteride 0.5 MG CAP PO SCH (08:10)
[2018-08-06] MEDS: Folic Acid 1 MG TAB PO SCH (08:10)
[2018-08-06] MEDS: Ascorbic Acid 500 mg Chewable Tablet PO SCH ×2 (08:10→17:12)
[2018-08-06] MEDS: Aspirin 81 mg Enteric Coated Tablet PO SCH ×2 (08:10→20:34)
[2018-08-06] MEDS: Citalopram 20 MG TAB PO SCH (08:10)
[2018-08-06] MEDS: Tamsulosin HCl 0.4 MG CAP PO SCH (08:10)
[2018-08-06] MEDS ORDERED: TESTOSTERONE CYPIONATE IM SCH (09:00)
[2018-08-06] MEDS: Nicotine 7 MG PATCH TOP SCH (18:23)
[2018-08-07] MEDS: Acetaminophen 500 MG TAB PO SCH ×4 (03:34→20:56)
[2018-08-07] MEDS: Mometasone/Formoterol 60 PUFF AER INH SCH ×2 (05:57→18:17)
[2018-08-07] MEDS: Cipro 250 MG TAB PO SCH ×2 (05:57→20:56)
[2018-08-07] MEDS: Ferrous Sulfate 325 MG TAB PO SCH ×2 (08:28→17:02)
[2018-08-07] MEDS: Ascorbic Acid 500 mg Chewable Tablet PO SCH ×2 (08:28→17:02)
[2018-08-07] MEDS: Folic Acid 1 MG TAB PO SCH (08:29)
[2018-08-07] MEDS: Aspirin 81 mg Enteric Coated Tablet PO SCH ×2 (08:29→20:57)
[2018-08-07] MEDS: Dutasteride 0.5 MG CAP PO SCH (08:29)
[2018-08-07] MEDS: Tamsulosin HCl 0.4 MG CAP PO SCH (08:29)
[2018-08-07] MEDS: Citalopram 20 MG TAB PO SCH (08:29)
[2018-08-07] MEDS: Nicotine 7 MG PATCH TOP SCH (18:16)
[2018-08-08] MEDS: Acetaminophen 500 MG TAB PO SCH ×4 (03:33→20:18)
[2018-08-08] MEDS: Cipro 250 MG TAB PO SCH ×2 (05:26→20:18)
[2018-08-08] MEDS: Mometasone/Formoterol 60 PUFF AER INH SCH ×2 (07:15→20:17)
[2018-08-08] MEDS: Ferrous Sulfate 325 MG TAB PO SCH ×2 (08:36→16:50)
[2018-08-08] MEDS: Ascorbic Acid 500 mg Chewable Tablet PO SCH ×2 (08:36→16:50)
[2018-08-08] MEDS: Tamsulosin HCl 0.4 MG CAP PO SCH (08:36)
[2018-08-08] MEDS: Folic Acid 1 MG TAB PO SCH (08:36)
[2018-08-08] MEDS: Dutasteride 0.5 MG CAP PO SCH (08:36)
[2018-08-08] MEDS: Aspirin 81 mg Enteric Coated Tablet PO SCH ×2 (08:36→20:18)
[2018-08-08] MEDS: Citalopram 20 MG TAB PO SCH (08:36)
[2018-08-08] MEDS: Calcium Carbonate 500 MG ChewTAB PO PRN (09:59)
[2018-08-08] MEDS: Nicotine 7 MG PATCH TOP SCH (20:17)
[2018-08-09] MEDS: Acetaminophen 500 MG TAB PO SCH ×4 (02:22→20:31)
[2018-08-09] MEDS: Cipro 250 MG TAB PO SCH ×2 (05:13→20:31)
[2018-08-09] MEDS: Mometasone/Formoterol 60 PUFF AER INH SCH ×2 (07:20→20:26)
[2018-08-09] MEDS: Tamsulosin HCl 0.4 MG CAP PO SCH (08:38)
[2018-08-09] MEDS: Citalopram 20 MG TAB PO SCH (08:38)
[2018-08-09] MEDS: Dutasteride 0.5 MG CAP PO SCH (08:38)
[2018-08-09] MEDS: Folic Acid 1 MG TAB PO SCH (08:38)
[2018-08-09] MEDS: Ascorbic Acid 500 mg Chewable Tablet PO SCH ×2 (08:39→16:43)
[2018-08-09] MEDS: Ferrous Sulfate 325 MG TAB PO SCH ×2 (08:39→16:43)
[2018-08-09] MEDS: Aspirin 81 mg Enteric Coated Tablet PO SCH ×2 (08:39→20:40)
[2018-08-09] MEDS ORDERED: Acetaminophen 500 MG TAB ONE (19:58)
[2018-08-09] MEDS: Nicotine 7 MG PATCH TOP SCH (20:30)
[2018-08-10] MEDS ORDERED: Acetaminophen 500 MG TAB ONE (02:01)
[2018-08-10] MEDS: Acetaminophen 500 MG TAB PO SCH ×4 (04:05→20:14)
[2018-08-10] MEDS: Cipro 250 MG TAB PO SCH ×2 (05:12→19:41)
[2018-08-10] MEDS: Mometasone/Formoterol 60 PUFF AER INH SCH ×2 (06:16→18:14)
[2018-08-10 07:12] LABS: #Eosinphils 0.2 thou/uL (0.0-0.7); #Lymphocytes 1.2 thou/uL (1.20-3.40); #Monocytes 0.6 thou/uL (0.11-0.59); #Neutrophils 2.9 thou/uL (1.40-6.50); %Basophils 0.6 % (0.0-1.0); %Monocytes 12.6 % (0.0-10.0); %Neutrophils 57.7 % (42.0-75.0); Burr Cells SLIGHT = 2-5 cells (100X) (0-1/hpf); Hemoglobin 8.4 g/dL (14.0-18.0); MDiff Complete? YES; Macrocytosis SLIGHT = 6-15 cells (100X) (0-5/hpf); Mean Corpuscular HGB CONC 32.4 g/dL (32.0-36.0); Mean Corpuscular Hemoglobin 34.4 pg (27.0-31.0); Mean Corpuscular Volume 106.1 fL (78.0-98.0); Mean Platelet Volume 4.2 fL (7.4-10.4); Platelet Count 301 thou/uL (130-400); RBC Distribution Width 16.6 % (11.5-14.5); Red Blood Cell (RBC) Count 2.44 mill/uL (4.70-6.10); Rouleaux Formation SLIGHT = 1-5 cells (100X) (None Seen); Schistocytes SLIGHT = 2-5 cells (100X) (0-1/hpf)
[2018-08-10] MEDS: Dutasteride 0.5 MG CAP PO SCH (08:02)
[2018-08-10] MEDS: Tamsulosin HCl 0.4 MG CAP PO SCH (08:02)
[2018-08-10] MEDS: Ascorbic Acid 500 mg Chewable Tablet PO SCH ×2 (08:02→17:07)
[2018-08-10] MEDS: Aspirin 81 mg Enteric Coated Tablet PO SCH ×2 (08:03→20:14)
[2018-08-10] MEDS: Ferrous Sulfate 325 MG TAB PO SCH ×2 (08:03→17:07)
[2018-08-10] MEDS: Folic Acid 1 MG TAB PO SCH (08:03)
[2018-08-10] MEDS: Citalopram 20 MG TAB PO SCH (08:03)
[2018-08-10] MEDS: Nicotine 7 MG PATCH TOP SCH (18:13)
[2018-08-10] MEDS ORDERED: Cepastat Lozenges 1 LOZ PO PRN (19:35)
[2018-08-11] MEDS: Acetaminophen 500 MG TAB PO SCH ×4 (04:27→20:35)
[2018-08-11] MEDS: Mometasone/Formoterol 60 PUFF AER INH SCH ×2 (06:18→20:33)
[2018-08-11] MEDS: Dutasteride 0.5 MG CAP PO SCH (08:45)
[2018-08-11] MEDS: Aspirin 81 mg Enteric Coated Tablet PO SCH ×2 (08:45→20:35)
[2018-08-11] MEDS: Citalopram 20 MG TAB PO SCH (08:45)
[2018-08-11] MEDS: Tamsulosin HCl 0.4 MG CAP PO SCH (08:45)
[2018-08-11] MEDS: Ascorbic Acid 500 mg Chewable Tablet PO SCH ×2 (08:45→16:38)
[2018-08-11] MEDS: Folic Acid 1 MG TAB PO SCH (08:46)
[2018-08-11] MEDS: Ferrous Sulfate 325 MG TAB PO SCH ×2 (08:46→16:38)
[2018-08-11] MEDS: Nicotine 7 MG PATCH TOP SCH (20:36)
[2018-08-12] MEDS: Acetaminophen 500 MG TAB PO SCH ×4 (04:02→20:47)
[2018-08-12] MEDS: Citalopram 20 MG TAB PO SCH (09:00)
[2018-08-12] MEDS: Folic Acid 1 MG TAB PO SCH (09:00)
[2018-08-12] MEDS: Ascorbic Acid 500 mg Chewable Tablet PO SCH ×2 (09:00→16:55)
[2018-08-12] MEDS: Tamsulosin HCl 0.4 MG CAP PO SCH (09:00)
[2018-08-12] MEDS: Dutasteride 0.5 MG CAP PO SCH (09:00)
[2018-08-12] MEDS: Ferrous Sulfate 325 MG TAB PO SCH ×2 (09:00→16:55)
[2018-08-12] MEDS: Aspirin 81 mg Enteric Coated Tablet PO SCH ×2 (09:01→20:47)
[2018-08-12] MEDS: Mometasone/Formoterol 60 PUFF AER INH SCH ×2 (09:01→20:46)
[2018-08-12] MEDS: Nicotine 7 MG PATCH TOP SCH (20:48)
[2018-08-13] MEDS: Acetaminophen 500 MG TAB PO SCH ×4 (03:58→20:26)
[2018-08-13] MEDS: Mometasone/Formoterol 60 PUFF AER INH SCH ×2 (07:30→19:27)
[2018-08-13] MEDS: Ferrous Sulfate 325 MG TAB PO SCH ×2 (08:35→16:44)
[2018-08-13] MEDS: Folic Acid 1 MG TAB PO SCH (08:35)
[2018-08-13] MEDS: Tamsulosin HCl 0.4 MG CAP PO SCH (08:35)
[2018-08-13] MEDS: Aspirin 81 mg Enteric Coated Tablet PO SCH ×2 (08:35→20:26)
[2018-08-13] MEDS: Dutasteride 0.5 MG CAP PO SCH (08:35)
[2018-08-13] MEDS: Ascorbic Acid 500 mg Chewable Tablet PO SCH ×2 (08:35→16:44)
[2018-08-13] MEDS: Citalopram 20 MG TAB PO SCH (08:35)
[2018-08-13] MEDS: Nicotine 7 MG PATCH TOP SCH (19:27)
[2018-08-14] MEDS: Acetaminophen 500 MG TAB PO SCH ×4 (04:25→20:25)
[2018-08-14] MEDS: Mometasone/Formoterol 60 PUFF AER INH SCH ×2 (09:15→18:04)
[2018-08-14] MEDS: Dutasteride 0.5 MG CAP PO SCH (09:16)
[2018-08-14] MEDS: Ascorbic Acid 500 mg Chewable Tablet PO SCH ×2 (09:16→17:00)
[2018-08-14] MEDS: Tamsulosin HCl 0.4 MG CAP PO SCH (09:16)
[2018-08-14] MEDS: Citalopram 20 MG TAB PO SCH (09:17)
[2018-08-14] MEDS: Ferrous Sulfate 325 MG TAB PO SCH ×2 (09:17→17:00)
[2018-08-14] MEDS: Folic Acid 1 MG TAB PO SCH (09:17)
[2018-08-14] MEDS: Aspirin 81 mg Enteric Coated Tablet PO SCH ×2 (09:17→20:25)
[2018-08-14] MEDS: Nicotine 7 MG PATCH TOP SCH (18:04)
[2018-08-15] MEDS: Acetaminophen 500 MG TAB PO SCH ×4 (02:48→19:56)
[2018-08-15] MEDS: Mometasone/Formoterol 60 PUFF AER INH SCH ×2 (09:02→19:53)
[2018-08-15] MEDS: Aspirin 81 mg Enteric Coated Tablet PO SCH ×2 (09:04→19:56)
[2018-08-15] MEDS: Ascorbic Acid 500 mg Chewable Tablet PO SCH ×2 (09:04→16:57)
[2018-08-15] MEDS: Folic Acid 1 MG TAB PO SCH (09:05)
[2018-08-15] MEDS: Citalopram 20 MG TAB PO SCH (09:07)
[2018-08-15] MEDS: Ferrous Sulfate 325 MG TAB PO SCH ×2 (09:07→16:57)
[2018-08-15] MEDS: Dutasteride 0.5 MG CAP PO SCH (09:08)
[2018-08-15] MEDS: Tamsulosin HCl 0.4 MG CAP PO SCH (09:08)
[2018-08-15] MEDS: Nicotine 7 MG PATCH TOP SCH (19:53)
[2018-08-16] MEDS: Acetaminophen 500 MG TAB PO SCH ×4 (04:06→20:14)
[2018-08-16] MEDS: Mometasone/Formoterol 60 PUFF AER INH SCH ×2 (07:40→18:16)
[2018-08-16] MEDS: Ascorbic Acid 500 mg Chewable Tablet PO SCH ×2 (07:41→17:09)
[2018-08-16] MEDS: Ferrous Sulfate 325 MG TAB PO SCH ×2 (07:41→17:09)
[2018-08-16] MEDS: Aspirin 81 mg Enteric Coated Tablet PO SCH ×2 (08:15→20:14)
[2018-08-16] MEDS: Dutasteride 0.5 MG CAP PO SCH (08:15)
[2018-08-16] MEDS: Folic Acid 1 MG TAB PO SCH (08:15)
[2018-08-16] MEDS: Citalopram 20 MG TAB PO SCH (08:15)
[2018-08-16] MEDS: Tamsulosin HCl 0.4 MG CAP PO SCH (08:15)
[2018-08-16] MEDS: Nicotine 7 MG PATCH TOP SCH (18:12)
[2018-08-17] MEDS: Acetaminophen 500 MG TAB PO SCH ×3 (02:49→15:00)
[2018-08-17] MEDS: Mometasone/Formoterol 60 PUFF AER INH SCH ×2 (06:25→18:27)
[2018-08-17] MEDS: Ferrous Sulfate 325 MG TAB PO SCH ×2 (08:41→17:01)
[2018-08-17] MEDS: Dutasteride 0.5 MG CAP PO SCH (08:42)
[2018-08-17] MEDS: Citalopram 20 MG TAB PO SCH (08:42)
[2018-08-17] MEDS: Tamsulosin HCl 0.4 MG CAP PO SCH (08:42)
[2018-08-17] MEDS: Folic Acid 1 MG TAB PO SCH (08:42)
[2018-08-17] MEDS: Aspirin 81 mg Enteric Coated Tablet PO SCH ×2 (08:42→20:56)
[2018-08-17] MEDS: Ascorbic Acid 500 mg Chewable Tablet PO SCH ×2 (08:42→17:01)
[2018-08-17] MEDS: Nicotine 7 MG PATCH TOP SCH (18:27)
[2018-08-18] MEDS: Mometasone/Formoterol 60 PUFF AER INH SCH ×2 (06:21→19:42)
[2018-08-18] MEDS: Aspirin 81 mg Enteric Coated Tablet PO SCH ×2 (07:04→20:07)
[2018-08-18] MEDS: Citalopram 20 MG TAB PO SCH (07:04)
[2018-08-18] MEDS: Ferrous Sulfate 325 MG TAB PO SCH ×2 (07:05→16:54)
[2018-08-18] MEDS: Ascorbic Acid 500 mg Chewable Tablet PO SCH ×2 (07:05→16:54)
[2018-08-18] MEDS: Tamsulosin HCl 0.4 MG CAP PO SCH (07:05)
[2018-08-18] MEDS: Dutasteride 0.5 MG CAP PO SCH (07:05)
[2018-08-18] MEDS: Folic Acid 1 MG TAB PO SCH (07:05)
[2018-08-18] MEDS: Nicotine 7 MG PATCH TOP SCH (19:42)
[2018-08-19] MEDS: Mometasone/Formoterol 60 PUFF AER INH SCH ×2 (07:30→21:08)
[2018-08-19] MEDS: Citalopram 20 MG TAB PO SCH (08:30)
[2018-08-19] MEDS: Polyethylene Glycol 3350 17 GM Packet PO SCH (08:30)
[2018-08-19] MEDS: Tamsulosin HCl 0.4 MG CAP PO SCH (08:30)
[2018-08-19] MEDS: Aspirin 81 mg Enteric Coated Tablet PO SCH ×2 (08:30→21:10)
[2018-08-19] MEDS: Ferrous Sulfate 325 MG TAB PO SCH ×2 (08:30→17:04)
[2018-08-19] MEDS: Dutasteride 0.5 MG CAP PO SCH (08:30)
[2018-08-19] MEDS: Floranex Packet PO SCH (08:30)
[2018-08-19] MEDS: Ascorbic Acid 500 mg Chewable Tablet PO SCH ×2 (08:30→17:04)
[2018-08-19] MEDS: Folic Acid 1 MG TAB PO SCH (08:31)
[2018-08-19] MEDS: Nicotine 7 MG PATCH TOP SCH (21:09)
[2018-08-19] MEDS: Acetaminophen 500 MG TAB PO PRN (21:10)
[2018-08-20] MEDS: Floranex Packet PO SCH (08:40)
[2018-08-20] MEDS: Polyethylene Glycol 3350 17 GM Packet PO SCH (08:40)
[2018-08-20] MEDS: Ascorbic Acid 500 mg Chewable Tablet PO SCH ×2 (08:40→16:56)
[2018-08-20] MEDS: Aspirin 81 mg Enteric Coated Tablet PO SCH ×2 (08:40→20:31)
[2018-08-20] MEDS: Dutasteride 0.5 MG CAP PO SCH (08:40)
[2018-08-20] MEDS: Folic Acid 1 MG TAB PO SCH (08:40)
[2018-08-20] MEDS: Tamsulosin HCl 0.4 MG CAP PO SCH (08:40)
[2018-08-20] MEDS: Citalopram 20 MG TAB PO SCH (08:40)
[2018-08-20] MEDS: Ferrous Sulfate 325 MG TAB PO SCH ×2 (08:40→16:56)
[2018-08-20] MEDS: Mometasone/Formoterol 60 PUFF AER INH SCH ×2 (08:41→20:30)
[2018-08-20] MEDS ORDERED: Nicotine 7 MG PATCH TOP SCH (09:00)
[2018-08-20] MEDS: traMADol HCl 50 MG TAB PO PRN (20:36)
[2018-08-20] MEDS: Nicotine 7 MG PATCH TOP SCH (20:41)
[2018-08-21] MEDS: Tamsulosin HCl 0.4 MG CAP PO SCH (08:46)
[2018-08-21] MEDS: Ascorbic Acid 500 mg Chewable Tablet PO SCH ×2 (08:46→17:08)
[2018-08-21] MEDS: Dutasteride 0.5 MG CAP PO SCH (08:46)
[2018-08-21] MEDS: Folic Acid 1 MG TAB PO SCH (08:46)
[2018-08-21] MEDS: Citalopram 20 MG TAB PO SCH (08:46)
[2018-08-21] MEDS: Floranex Packet PO SCH (08:46)
[2018-08-21] MEDS: Mometasone/Formoterol 60 PUFF AER INH SCH ×2 (08:47→20:49)
[2018-08-21] MEDS: Polyethylene Glycol 3350 17 GM Packet PO SCH (08:47)
[2018-08-21] MEDS: Aspirin 81 mg Enteric Coated Tablet PO SCH ×2 (08:47→20:50)
[2018-08-21] MEDS: Ferrous Sulfate 325 MG TAB PO SCH ×2 (08:47→17:08)
[2018-08-21] MEDS: Nicotine 7 MG PATCH TOP SCH (20:48)
[2018-08-21] MEDS: Acetaminophen 500 MG TAB PO PRN (20:49)
[2018-08-22] MEDS: Floranex Packet PO SCH (08:25)
[2018-08-22] MEDS: Mometasone/Formoterol 60 PUFF AER INH SCH ×2 (08:25→21:19)
[2018-08-22] MEDS: Polyethylene Glycol 3350 17 GM Packet PO SCH (08:25)
[2018-08-22] MEDS: Ferrous Sulfate 325 MG TAB PO SCH ×2 (08:26→17:03)
[2018-08-22] MEDS: Aspirin 81 mg Enteric Coated Tablet PO SCH ×2 (08:26→21:20)
[2018-08-22] MEDS: Citalopram 20 MG TAB PO SCH (08:26)
[2018-08-22] MEDS: Tamsulosin HCl 0.4 MG CAP PO SCH (08:26)
[2018-08-22] MEDS: Ascorbic Acid 500 mg Chewable Tablet PO SCH ×2 (08:26→17:03)
[2018-08-22] MEDS: Dutasteride 0.5 MG CAP PO SCH (08:27)
[2018-08-22] MEDS: Folic Acid 1 MG TAB PO SCH (08:27)
[2018-08-22] MEDS: Acetaminophen 500 MG TAB PO PRN (21:20)
[2018-08-22] MEDS: Nicotine 7 MG PATCH TOP SCH (21:21)
[2018-08-23] MEDS: Ferrous Sulfate 325 MG TAB PO SCH ×2 (08:48→17:09)
[2018-08-23] MEDS: Aspirin 81 mg Enteric Coated Tablet PO SCH ×2 (08:48→20:07)
[2018-08-23] MEDS: Tamsulosin HCl 0.4 MG CAP PO SCH (08:48)
[2018-08-23] MEDS: Dutasteride 0.5 MG CAP PO SCH (08:48)
[2018-08-23] MEDS: Ascorbic Acid 500 mg Chewable Tablet PO SCH ×2 (08:48→17:09)
[2018-08-23] MEDS: Mometasone/Formoterol 60 PUFF AER INH SCH ×2 (08:48→20:08)
[2018-08-23] MEDS: Polyethylene Glycol 3350 17 GM Packet PO SCH (08:48)
[2018-08-23] MEDS: Citalopram 20 MG TAB PO SCH (08:48)
[2018-08-23] MEDS: Folic Acid 1 MG TAB PO SCH (08:49)
[2018-08-23] MEDS: Floranex Packet PO SCH (08:49)
[2018-08-23] MEDS: Nicotine 7 MG PATCH TOP SCH (21:13)
[2018-08-24] MEDS: Ascorbic Acid 500 mg Chewable Tablet PO SCH ×2 (09:00→17:16)
[2018-08-24] MEDS: Citalopram 20 MG TAB PO SCH (09:00)
[2018-08-24] MEDS: Folic Acid 1 MG TAB PO SCH (09:00)
[2018-08-24] MEDS: Dutasteride 0.5 MG CAP PO SCH (09:00)
[2018-08-24] MEDS: Tamsulosin HCl 0.4 MG CAP PO SCH (09:00)
[2018-08-24] MEDS: Floranex Packet PO SCH (09:01)
[2018-08-24] MEDS: Mometasone/Formoterol 60 PUFF AER INH SCH ×2 (09:01→20:35)
[2018-08-24] MEDS: Ferrous Sulfate 325 MG TAB PO SCH ×2 (09:01→17:16)
[2018-08-24] MEDS: Aspirin 81 mg Enteric Coated Tablet PO SCH ×2 (09:01→20:35)
[2018-08-24] MEDS: Polyethylene Glycol 3350 17 GM Packet PO SCH (09:01)
[2018-08-24] MEDS: Nicotine 7 MG PATCH TOP SCH (20:36)
[2018-08-25] MEDS: Ascorbic Acid 500 mg Chewable Tablet PO SCH ×2 (08:52→17:05)
[2018-08-25] MEDS: Aspirin 81 mg Enteric Coated Tablet PO SCH ×2 (08:53→21:42)
[2018-08-25] MEDS: Ferrous Sulfate 325 MG TAB PO SCH ×2 (08:53→17:05)
[2018-08-25] MEDS: Dutasteride 0.5 MG CAP PO SCH (08:53)
[2018-08-25] MEDS: Floranex Packet PO SCH (08:53)
[2018-08-25] MEDS: Citalopram 20 MG TAB PO SCH (08:53)
[2018-08-25] MEDS: Tamsulosin HCl 0.4 MG CAP PO SCH (08:54)
[2018-08-25] MEDS: Mometasone/Formoterol 60 PUFF AER INH SCH ×2 (08:54→21:42)
[2018-08-25] MEDS: Polyethylene Glycol 3350 17 GM Packet PO SCH (08:54)
[2018-08-25] MEDS: Folic Acid 1 MG TAB PO SCH (08:54)
[2018-08-25] MEDS: Nicotine 7 MG PATCH TOP SCH (21:42)
[2018-08-25] MEDS: Acetaminophen 500 MG TAB PO PRN (21:43)
[2018-08-26] MEDS: Floranex Packet PO SCH (08:16)
[2018-08-26] MEDS: Citalopram 20 MG TAB PO SCH (08:16)
[2018-08-26] MEDS: Folic Acid 1 MG TAB PO SCH (08:16)
[2018-08-26] MEDS: Dutasteride 0.5 MG CAP PO SCH (08:16)
[2018-08-26] MEDS: Polyethylene Glycol 3350 17 GM Packet PO SCH (08:16)
[2018-08-26] MEDS: Mometasone/Formoterol 60 PUFF AER INH SCH ×2 (08:17→20:57)
[2018-08-26] MEDS: Ascorbic Acid 500 mg Chewable Tablet PO SCH ×2 (08:17→17:04)
[2018-08-26] MEDS: Aspirin 81 mg Enteric Coated Tablet PO SCH ×2 (08:17→21:02)
[2018-08-26] MEDS: Tamsulosin HCl 0.4 MG CAP PO SCH (08:17)
[2018-08-26] MEDS: Ferrous Sulfate 325 MG TAB PO SCH ×2 (08:17→17:04)
[2018-08-26] MEDS: Acetaminophen 500 MG TAB PO PRN (21:02)
[2018-08-26] MEDS: Nicotine 7 MG PATCH TOP SCH (21:03)
[2018-08-27] MEDS: Floranex Packet PO SCH (08:12)
[2018-08-27] MEDS: Dutasteride 0.5 MG CAP PO SCH (08:12)
[2018-08-27] MEDS: Ascorbic Acid 500 mg Chewable Tablet PO SCH ×2 (08:12→16:52)
[2018-08-27] MEDS: Aspirin 81 mg Enteric Coated Tablet PO SCH ×2 (08:12→21:10)
[2018-08-27] MEDS: Folic Acid 1 MG TAB PO SCH (08:12)
[2018-08-27] MEDS: Citalopram 20 MG TAB PO SCH (08:12)
[2018-08-27] MEDS: Mometasone/Formoterol 60 PUFF AER INH SCH ×2 (08:13→21:07)
[2018-08-27] MEDS: Ferrous Sulfate 325 MG TAB PO SCH ×2 (08:13→16:52)
[2018-08-27] MEDS: Tamsulosin HCl 0.4 MG CAP PO SCH (08:13)
[2018-08-27] MEDS: Polyethylene Glycol 3350 17 GM Packet PO SCH (08:13)
[2018-08-27 11:12] LABS: Bilirubin Negative (Negative); Blood, Urine Trace (Negative); Glucose, Urine (Dipstick) Negative (Negative); Leukocyte Large (Negative); Nitrite Positive (Negative); Protein, Urine (Dipstick) Negative (Neg-Trace); Specific Gravity, Urine 1.015 (1.005-1.030)
[2018-08-27 11:17] LABS: Clarity Hazy (Clear)
[2018-08-27 11:18] LABS: Bacteria/HPF 2+ HPF (None Seen); RBC/HPF 0-3 HPF (0-3); Squamous Epithelial None Seen HPF (0-3)
[2018-08-27 11:19] LABS: Urine Culture Reflex Yes Yes
--- NOTE | 2018-08-27 11:21 | RAD ---
EXAM: Left femur 2 views: HISTORY: Left hip pain COMPARISON: None FINDINGS: Bony demineralization. Prominent vascular calcifications. Degenerative changes. No acute fracture or dislocation or other significant acute osseous abnormality. IMPRESSION: No significant acute process.
[2018-08-27] MEDS: Acetaminophen 500 MG TAB PO PRN (21:09)
[2018-08-27] MEDS: Sulfameth/Trimethoprim DS 800-160mg TAB PO SCH (21:10)
[2018-08-27] MEDS: Nicotine 7 MG PATCH TOP SCH (21:11)
[2018-08-28] MEDS: Polyethylene Glycol 3350 17 GM Packet PO SCH (08:16)
[2018-08-28] MEDS: Floranex Packet PO SCH (08:17)
[2018-08-28] MEDS: Dutasteride 0.5 MG CAP PO SCH (08:19)
[2018-08-28] MEDS: Ascorbic Acid 500 mg Chewable Tablet PO SCH ×2 (08:19→16:41)
[2018-08-28] MEDS: Ferrous Sulfate 325 MG TAB PO SCH ×2 (08:19→16:41)
[2018-08-28] MEDS: Citalopram 20 MG TAB PO SCH (08:19)
[2018-08-28] MEDS: Tamsulosin HCl 0.4 MG CAP PO SCH (08:19)
[2018-08-28] MEDS: Sulfameth/Trimethoprim DS 800-160mg TAB PO SCH ×2 (08:19→20:07)
[2018-08-28] MEDS: Folic Acid 1 MG TAB PO SCH (08:19)
[2018-08-28] MEDS: Aspirin 81 mg Enteric Coated Tablet PO SCH ×2 (08:19→20:07)
[2018-08-28] MEDS: Mometasone/Formoterol 60 PUFF AER INH SCH ×2 (08:19→20:06)
[2018-08-28] MEDS ORDERED: Amlodipine 5 MG TAB PO SCH (14:30)
[2018-08-28] MEDS: Nicotine 7 MG PATCH TOP SCH (20:07)
[2018-08-29] MEDS: Amlodipine 5 MG TAB PO SCH (08:17)
[2018-08-29] MEDS: Folic Acid 1 MG TAB PO SCH (08:17)
[2018-08-29] MEDS: Ascorbic Acid 500 mg Chewable Tablet PO SCH ×2 (08:17→16:52)
[2018-08-29] MEDS: Dutasteride 0.5 MG CAP PO SCH (08:17)
[2018-08-29] MEDS: Aspirin 81 mg Enteric Coated Tablet PO SCH ×2 (08:17→20:15)
[2018-08-29] MEDS: Tamsulosin HCl 0.4 MG CAP PO SCH (08:18)
[2018-08-29] MEDS: Citalopram 20 MG TAB PO SCH (08:18)
[2018-08-29] MEDS: Ferrous Sulfate 325 MG TAB PO SCH ×2 (08:18→16:52)
[2018-08-29] MEDS: Sulfameth/Trimethoprim DS 800-160mg TAB PO SCH ×2 (08:18→20:15)
[2018-08-29] MEDS: Mometasone/Formoterol 60 PUFF AER INH SCH ×2 (08:21→20:16)
[2018-08-29] MEDS: Polyethylene Glycol 3350 17 GM Packet PO SCH (08:21)
[2018-08-29] MEDS: Floranex Packet PO SCH (08:21)
[2018-08-29] MEDS: Nicotine 7 MG PATCH TOP SCH (20:16)
[2018-08-30] MEDS: Polyethylene Glycol 3350 17 GM Packet PO SCH (08:18)
[2018-08-30] MEDS: Folic Acid 1 MG TAB PO SCH (08:19)
[2018-08-30] MEDS: Citalopram 20 MG TAB PO SCH (08:19)
[2018-08-30] MEDS: Sulfameth/Trimethoprim DS 800-160mg TAB PO SCH ×2 (08:19→20:26)
[2018-08-30] MEDS: Dutasteride 0.5 MG CAP PO SCH (08:19)
[2018-08-30] MEDS: Ascorbic Acid 500 mg Chewable Tablet PO SCH ×2 (08:19→16:53)
[2018-08-30] MEDS: Amlodipine 5 MG TAB PO SCH (08:19)
[2018-08-30] MEDS: Aspirin 81 mg Enteric Coated Tablet PO SCH ×2 (08:19→20:26)
[2018-08-30] MEDS: Ferrous Sulfate 325 MG TAB PO SCH ×2 (08:20→16:53)
[2018-08-30] MEDS: Tamsulosin HCl 0.4 MG CAP PO SCH (08:20)
[2018-08-30] MEDS: Floranex Packet PO SCH (08:21)
[2018-08-30] MEDS: Mometasone/Formoterol 60 PUFF AER INH SCH ×2 (08:26→20:26)
[2018-08-30] MEDS: Calcium Carbonate 500 MG ChewTAB PO PRN (11:06)
[2018-08-30] MEDS: Acetaminophen 500 MG TAB PO PRN (16:55)
[2018-08-30] MEDS: Nicotine 7 MG PATCH TOP SCH (20:26)
[2018-08-31] MEDS: Polyethylene Glycol 3350 17 GM Packet PO SCH (08:19)
[2018-08-31] MEDS: Acetaminophen 500 MG TAB PO PRN ×2 (08:19→20:38)
[2018-08-31] MEDS: Dutasteride 0.5 MG CAP PO SCH (08:20)
[2018-08-31] MEDS: Floranex Packet PO SCH (08:20)
[2018-08-31] MEDS: Aspirin 81 mg Enteric Coated Tablet PO SCH ×2 (08:20→20:36)
[2018-08-31] MEDS: Sulfameth/Trimethoprim DS 800-160mg TAB PO SCH ×2 (08:20→20:37)
[2018-08-31] MEDS: Amlodipine 5 MG TAB PO SCH (08:20)
[2018-08-31] MEDS: Citalopram 20 MG TAB PO SCH (08:20)
[2018-08-31] MEDS: Folic Acid 1 MG TAB PO SCH (08:20)
[2018-08-31] MEDS: Tamsulosin HCl 0.4 MG CAP PO SCH (08:21)
[2018-08-31] MEDS: Ferrous Sulfate 325 MG TAB PO SCH ×2 (08:21→17:10)
[2018-08-31] MEDS: Ascorbic Acid 500 mg Chewable Tablet PO SCH ×2 (08:21→17:09)
[2018-08-31] MEDS: Mometasone/Formoterol 60 PUFF AER INH SCH ×2 (08:21→20:36)
[2018-08-31] MEDS: Cefepime 1 GM in Sodium Chloride 0.9% 100 ML IVPB SCH ×2 (10:55→23:05)
[2018-08-31] MEDS: Nicotine 7 MG PATCH TOP SCH (20:37)
[2018-09-01] MEDS: Polyethylene Glycol 3350 17 GM Packet PO SCH (08:43)
[2018-09-01] MEDS: Mometasone/Formoterol 60 PUFF AER INH SCH ×2 (08:43→21:31)
[2018-09-01] MEDS: Dutasteride 0.5 MG CAP PO SCH (09:17)
[2018-09-01] MEDS: Citalopram 20 MG TAB PO SCH ×2 (09:17→12:04)
[2018-09-01] MEDS: Tamsulosin HCl 0.4 MG CAP PO SCH ×2 (09:18→12:05)
[2018-09-01] MEDS: Sulfameth/Trimethoprim DS 800-160mg TAB PO SCH ×3 (09:18→21:31)
[2018-09-01] MEDS: Folic Acid 1 MG TAB PO SCH ×2 (09:18→12:07)
[2018-09-01] MEDS: Amlodipine 5 MG TAB PO SCH ×2 (09:19→12:06)
[2018-09-01] MEDS: Floranex Packet PO SCH ×2 (09:19→12:07)
[2018-09-01] MEDS: Aspirin 81 mg Enteric Coated Tablet PO SCH ×2 (09:19→21:31)
[2018-09-01] MEDS: Ferrous Sulfate 325 MG TAB PO SCH ×2 (09:19→17:08)
[2018-09-01] MEDS: Ascorbic Acid 500 mg Chewable Tablet PO SCH ×2 (09:19→17:08)
[2018-09-01] MEDS: Cefepime 1 GM in Sodium Chloride 0.9% 100 ML IVPB SCH ×2 (12:03→23:22)
[2018-09-01] MEDS: Nicotine 7 MG PATCH TOP SCH (21:31)
[2018-09-02] MEDS: Amlodipine 5 MG TAB PO SCH (08:41)
[2018-09-02] MEDS: Ferrous Sulfate 325 MG TAB PO SCH ×2 (08:41→17:25)
[2018-09-02] MEDS: Ascorbic Acid 500 mg Chewable Tablet PO SCH ×2 (08:41→17:25)
[2018-09-02] MEDS: Floranex Packet PO SCH (08:41)
[2018-09-02] MEDS: Aspirin 81 mg Enteric Coated Tablet PO SCH ×2 (08:42→21:02)
[2018-09-02] MEDS: Folic Acid 1 MG TAB PO SCH (08:42)
[2018-09-02] MEDS: Citalopram 20 MG TAB PO SCH (08:42)
[2018-09-02] MEDS: Dutasteride 0.5 MG CAP PO SCH (08:42)
[2018-09-02] MEDS: Tamsulosin HCl 0.4 MG CAP PO SCH (08:43)
[2018-09-02] MEDS: Mometasone/Formoterol 60 PUFF AER INH SCH ×2 (08:43→21:02)
[2018-09-02] MEDS: Polyethylene Glycol 3350 17 GM Packet PO SCH (08:43)
[2018-09-02] MEDS: Sulfameth/Trimethoprim DS 800-160mg TAB PO SCH ×2 (08:43→21:02)
[2018-09-02] MEDS: Cefepime 1 GM in Sodium Chloride 0.9% 100 ML IVPB SCH (12:45)
[2018-09-02] MEDS: Nicotine 7 MG PATCH TOP SCH (21:02)
[2018-09-03] MEDS: Cefepime 1 GM in Sodium Chloride 0.9% 100 ML IVPB SCH ×2 (00:45→13:47)
[2018-09-03] MEDS: Floranex Packet PO SCH (08:42)
[2018-09-03] MEDS: Polyethylene Glycol 3350 17 GM Packet PO SCH (08:43)
[2018-09-03] MEDS: Citalopram 20 MG TAB PO SCH (08:44)
[2018-09-03] MEDS: Sulfameth/Trimethoprim DS 800-160mg TAB PO SCH ×2 (08:44→20:37)
[2018-09-03] MEDS: Ascorbic Acid 500 mg Chewable Tablet PO SCH ×2 (08:44→16:03)
[2018-09-03] MEDS: Dutasteride 0.5 MG CAP PO SCH (08:44)
[2018-09-03] MEDS: Tamsulosin HCl 0.4 MG CAP PO SCH (08:44)
[2018-09-03] MEDS: Aspirin 81 mg Enteric Coated Tablet PO SCH ×2 (08:44→20:38)
[2018-09-03] MEDS: Amlodipine 5 MG TAB PO SCH (08:44)
[2018-09-03] MEDS: Folic Acid 1 MG TAB PO SCH (08:44)
[2018-09-03] MEDS: Ferrous Sulfate 325 MG TAB PO SCH ×2 (08:45→16:04)
[2018-09-03] MEDS: Mometasone/Formoterol 60 PUFF AER INH SCH ×2 (08:46→20:45)
[2018-09-03] MEDS: ALPRAZolam 0.25 MG TAB PO PRN (18:03)
[2018-09-03 18:41] LABS: ALT (SGPT) 22 U/L (8-55); AST (SGOT) 23 U/L (5-34); Albumin 3.9 g/dL (3.4-4.8); Alkaline Phosphatase 135 U/L (40-150); Anion Gap 13 mmol/L (10-20); BUN (Urea Nitrogen) 30 mg/dL (8.4-25.7); Bilirubin, Total 0.7 mg/dL (0.2-1.2); Calc. Creatinine Clearance 30 mL/min (70-130); Calcium 8.8 mg/dL (7.8-10.44); Carbon Dioxide 23 mmol/L (23-31); Chloride 98 mmol/L (98-107); Estimated GFR-MDRD 43; Globulin 3.3 g/dL (2.4-3.5); Glucose 77 mg/dL (83-110); Potassium 4.8 mmol/L (3.5-5.1); Protein, Total 7.2 g/dL (5.8-8.1); Sodium 129 mmol/L (136-145)
[2018-09-03 18:55] LABS: Hemoglobin 10.9 g/dL (14.0-18.0); Lymphocytes 35 % (21-51); MDiff Complete? YES; Macrocytosis SLIGHT = 6-15 cells (100X) (0-5/hpf); Mean Corpuscular HGB CONC 32.1 g/dL (32.0-36.0); Mean Corpuscular Hemoglobin 34.2 pg (27.0-31.0); Mean Corpuscular Volume 106.6 fL (78.0-98.0); Mean Platelet Volume 4.8 fL (7.4-10.4); Metamyelocyte 1 % (0-0); Monocytes 4 % (0-10); Neutrophil 58 % (42-75); Platelet Count 222 thou/uL (130-400); Platelet Morphology Comment Appears Adequate; RBC Distribution Width 15.2 % (11.5-14.5); Reactive Lymphocytes 2 % (0-10); Red Blood Cell (RBC) Count 3.18 mill/uL (4.70-6.10); White Blood Cell (WBC) Count 4.2 thou/uL (4.8-10.8)
[2018-09-03 18:56] LABS: Thyroid Stimulating Hormone 0.8474 uIU/mL (0.35-4.94)
[2018-09-03] MEDS: traMADol HCl 50 MG TAB PO PRN (20:37)
[2018-09-03] MEDS: Nicotine 7 MG PATCH TOP SCH (20:38)
[2018-09-03] MEDS: Melatonin 3 MG TAB PO PRN (20:38)
[2018-09-04] MEDS: Cefepime 1 GM in Sodium Chloride 0.9% 100 ML IVPB SCH ×2 (00:43→12:10)
[2018-09-04] MEDS: Sodium Chloride 0.9% 1,000 ML IV SCH ×2 (08:50→17:41)
[2018-09-04] MEDS: Citalopram 20 MG TAB PO SCH (08:51)
[2018-09-04] MEDS: Dutasteride 0.5 MG CAP PO SCH (08:51)
[2018-09-04] MEDS: Tamsulosin HCl 0.4 MG CAP PO SCH (08:51)
[2018-09-04] MEDS: Amlodipine 5 MG TAB PO SCH (08:51)
[2018-09-04] MEDS: Folic Acid 1 MG TAB PO SCH (08:51)
[2018-09-04] MEDS: Sulfameth/Trimethoprim DS 800-160mg TAB PO SCH ×2 (08:51→20:49)
[2018-09-04] MEDS: Ascorbic Acid 500 mg Chewable Tablet PO SCH ×2 (08:51→17:40)
[2018-09-04] MEDS: Floranex Packet PO SCH (08:52)
[2018-09-04] MEDS: Polyethylene Glycol 3350 17 GM Packet PO SCH (08:52)
[2018-09-04] MEDS: Mometasone/Formoterol 60 PUFF AER INH SCH ×2 (08:52→20:49)
[2018-09-04] MEDS: Ferrous Sulfate 325 MG TAB PO SCH ×2 (08:54→17:40)
[2018-09-04] MEDS: Aspirin 81 mg Enteric Coated Tablet PO SCH ×2 (08:54→20:49)
[2018-09-04 12:29] LABS: Free T4 (Free Thyroxine) 0.91 ng/dL (0.70-1.48)
[2018-09-04] MEDS: Melatonin 3 MG TAB PO PRN (20:48)
[2018-09-04] MEDS: Nicotine 7 MG PATCH TOP SCH (20:49)
[2018-09-05] MEDS: Cefepime 1 GM in Sodium Chloride 0.9% 100 ML IVPB SCH ×2 (00:15→11:42)
[2018-09-05] MEDS: Sodium Chloride 0.9% 1,000 ML IV SCH ×2 (01:11→05:37)
[2018-09-05 07:56] LABS: Anion Gap 13 mmol/L (10-20); BUN (Urea Nitrogen) 30 mg/dL (8.4-25.7); Calc. Creatinine Clearance 32 mL/min (70-130); Calcium 8.2 mg/dL (7.8-10.44); Carbon Dioxide 19 mmol/L (23-31); Chloride 103 mmol/L (98-107); Estimated GFR-MDRD 46; Potassium 4.8 mmol/L (3.5-5.1); Sodium 130 mmol/L (136-145)
[2018-09-05 08:18] LABS: Glucose 59 mg/dL (83-110)
[2018-09-05] MEDS: Amlodipine 5 MG TAB PO SCH (08:47)
[2018-09-05] MEDS: Tamsulosin HCl 0.4 MG CAP PO SCH (08:47)
[2018-09-05] MEDS: Sulfameth/Trimethoprim DS 800-160mg TAB PO SCH ×2 (08:49→21:48)
[2018-09-05] MEDS: Folic Acid 1 MG TAB PO SCH (08:49)
[2018-09-05] MEDS: Citalopram 20 MG TAB PO SCH (08:49)
[2018-09-05] MEDS: Floranex Packet PO SCH (08:49)
[2018-09-05] MEDS: Ascorbic Acid 500 mg Chewable Tablet PO SCH ×2 (08:49→17:17)
[2018-09-05] MEDS: Polyethylene Glycol 3350 17 GM Packet PO SCH (08:49)
[2018-09-05] MEDS: Aspirin 81 mg Enteric Coated Tablet PO SCH ×2 (08:50→21:48)
[2018-09-05] MEDS: Dutasteride 0.5 MG CAP PO SCH (08:50)
[2018-09-05] MEDS: Ferrous Sulfate 325 MG TAB PO SCH ×2 (08:50→17:17)
[2018-09-05] MEDS: Mometasone/Formoterol 60 PUFF AER INH SCH ×2 (08:52→21:51)
[2018-09-05] MEDS: Nicotine 7 MG PATCH TOP SCH (21:48)
[2018-09-06] MEDS: Cefepime 1 GM in Sodium Chloride 0.9% 100 ML IVPB SCH ×2 (00:08→12:07)
[2018-09-06] MEDS: Polyethylene Glycol 3350 17 GM Packet PO SCH (08:41)
[2018-09-06] MEDS: Ferrous Sulfate 325 MG TAB PO SCH ×2 (08:42→17:08)
[2018-09-06] MEDS: Floranex Packet PO SCH (08:42)
[2018-09-06] MEDS: Dutasteride 0.5 MG CAP PO SCH (08:42)
[2018-09-06] MEDS: Tamsulosin HCl 0.4 MG CAP PO SCH (08:42)
[2018-09-06] MEDS: Sulfameth/Trimethoprim DS 800-160mg TAB PO SCH ×2 (08:43→21:24)
[2018-09-06] MEDS: Ascorbic Acid 500 mg Chewable Tablet PO SCH ×2 (08:43→17:08)
[2018-09-06] MEDS: Aspirin 81 mg Enteric Coated Tablet PO SCH ×2 (08:43→21:24)
[2018-09-06] MEDS: Amlodipine 5 MG TAB PO SCH (08:43)
[2018-09-06] MEDS: Folic Acid 1 MG TAB PO SCH (08:43)
[2018-09-06] MEDS: Citalopram 20 MG TAB PO SCH (08:43)
[2018-09-06] MEDS: Mometasone/Formoterol 60 PUFF AER INH SCH ×2 (08:44→21:32)
[2018-09-06] MEDS: ALPRAZolam 0.25 MG TAB PO PRN ×2 (14:54→21:27)
[2018-09-06] MEDS: Nicotine 7 MG PATCH TOP SCH (21:32)
[2018-09-07] MEDS: Floranex Packet PO SCH (09:50)
[2018-09-07] MEDS: Ascorbic Acid 500 mg Chewable Tablet PO SCH ×2 (09:50→17:36)
[2018-09-07] MEDS: Ferrous Sulfate 325 MG TAB PO SCH ×2 (09:50→17:36)
[2018-09-07] MEDS: Amlodipine 5 MG TAB PO SCH (09:50)
[2018-09-07] MEDS: Aspirin 81 mg Enteric Coated Tablet PO SCH ×2 (09:52→20:23)
[2018-09-07] MEDS: Polyethylene Glycol 3350 17 GM Packet PO SCH (09:53)
[2018-09-07] MEDS: Mometasone/Formoterol 60 PUFF AER INH SCH ×2 (09:53→20:34)
[2018-09-07] MEDS: Citalopram 20 MG TAB PO SCH (09:53)
[2018-09-07] MEDS: Dutasteride 0.5 MG CAP PO SCH (09:53)
[2018-09-07] MEDS: Folic Acid 1 MG TAB PO SCH (09:53)
[2018-09-07] MEDS: Tamsulosin HCl 0.4 MG CAP PO SCH (09:54)
[2018-09-07 16:28] VITALS: BMI 17.9
[2018-09-07] MEDS: Nicotine 7 MG PATCH TOP SCH (20:24)
[2018-09-07] MEDS: Calcium Carbonate 500 MG ChewTAB PO PRN (20:24)
[2018-09-08 08:33] VITALS: BP 179/79; TEMP 97.5
[2018-09-08] MEDS: Ascorbic Acid 500 mg Chewable Tablet PO SCH (08:35)
[2018-09-08] MEDS: Amlodipine 5 MG TAB PO SCH (08:36)
[2018-09-08] MEDS: Floranex Packet PO SCH (08:36)
[2018-09-08] MEDS: Ferrous Sulfate 325 MG TAB PO SCH (08:36)
[2018-09-08] MEDS: Dutasteride 0.5 MG CAP PO SCH (08:37)
[2018-09-08] MEDS: Citalopram 20 MG TAB PO SCH (08:37)
[2018-09-08] MEDS: Aspirin 81 mg Enteric Coated Tablet PO SCH (08:37)
[2018-09-08] MEDS: Folic Acid 1 MG TAB PO SCH (08:38)
[2018-09-08] MEDS: Mometasone/Formoterol 60 PUFF AER INH SCH (08:38)
[2018-09-08] MEDS: Polyethylene Glycol 3350 17 GM Packet PO SCH (08:39)
[2018-09-08] MEDS: Tamsulosin HCl 0.4 MG CAP PO SCH (08:40)
--- NOTE | 2018-09-09 05:22 | DIS ---
DATE OF ADMISSION: 07/16/2018 DATE OF DISCHARGE: 09/08/2018 DISCHARGING PHYSICIAN: Delmar Waite MD PRIMARY CARE PHYSICIAN: Leo Sevilla MD DISCHARGE DISPOSITION: To home with son. DISCHARGE DIAGNOSES: 1. Physical debility, improving. 2. Status post right intertrochanteric fracture, status post repair. 3. Recurrent urinary tract infection, resolved. 4. Rhabdomyolysis, resolved. 5. Alzheimer dementia with behavioral issues. 6. Urinary retention with segura cath 7. Electrolyte abnormalities, all resolved. DISCHARGE MEDICATIONS: 1. Ventolin 2 puffs q.4 p.r.n. 2. Norvasc 2.5 daily. 3. Vitamin C 500 b.i.d. 4. Aspirin 81 mg b.i.d. 5. Celexa 20 daily. 6. Avodart 0.5 daily. 7. Ferrous sulfate 325 b.i.d. 8. Folic acid 1 mg daily. 9. Melatonin 6 mg at bedtime. 10. Dulera 1 puff b.i.d. 11. Protonix 40 daily. 12. MiraLAX 17 g daily. 13. Flomax 0.4 daily. 14. Tramadol 50 q.6 p.r.n. DISCHARGE INSTRUCTIONS: 1. Follow up with primary care physician within 1 week. 2. Start outpatient physical therapy at [facility]. 3. Ambulate with a walker at all times. 4. Follow up with urologist. BRIEF HOSPITAL COURSE: Mr. Whitfield is an 82-year-old male with significant history of alcohol abuse, hypertension, chronic hyponatremia, who used to live by himself in [place]. Son found the patient in his house on the floor in his bedroom and was taken to the emergency room on July 13. In the ER, x- ray was done and it was noted to have a right intertrochanteric femoral fracture. This was repaired by Dr. Vann on July 14, 2018 and postoperatively, the patient did well. He required 1 unit of PRBC and his electrolytes were improving and the decision was made to transfer the patient to [facility] for skilled rehabilitation. The patient's hospitalization in [place] was complicated by urinary tract infection that required a Segura catheter and the patient was transferred with this. He continued with antibiotics and this initially resolved. The patient participated in physical therapy, but his hospitalization was complicated by episodes of confusion and worsening of his dementia. The patient 's physical therapy was somewhat delayed due to this, but he progressively improved. The patient unfortunately had another episode of urinary tract infection and had to be treated with IV antibiotic again. Family decided that they would take the patient home and one of his sons will be able to take care of him 04/11. On the day of discharge, the patient was able to ambulate about 300 feet using a rolling walker, he needed a lot of redirection, but son felt he could not do this. Physical Therapy states the patient was making progress, but had not met any of his goals. Family decided to take the patient home and follow up with continuation of physical therapy at [facility]. On date of discharge, the patient's vital signs, temperature 97.5, pulse 72, respiration 18, O2 saturation 98%, blood pressure 179/79. Total time spent in preparation of the discharge summary and evaluation of the patient was a total of 35 minutes. CODE STATUS: The patient is a DNAR. Job ID: [id number]
== END 2018-09-08 16:00 | disposition home or self-care (01) | DRG 560 ==
LOC: MADMS 13:22
PROVIDERS: ADMIT Family Medicine; ATTEND Family Medicine
DX: S72.141D Displaced intertrochanteric fracture of right femur, subsequent encounter for closed fracture with routine healing (principal); M62.82 Rhabdomyolysis; D62 Acute posthemorrhagic anemia; E87.1 Hypo-osmolality and hyponatremia; N17.9 Acute kidney failure, unspecified; N13.8 Other obstructive and reflux uropathy; Z66 Do not resuscitate; R53.81 Other malaise; E86.0 Dehydration; D53.9 Nutritional anemia, unspecified; F10.11 Alcohol abuse, in remission; E87.6 Hypokalemia; E83.39 Other disorders of phosphorus metabolism; E83.42 Hypomagnesemia; F41.9 Anxiety disorder, unspecified; F32.9 Major depressive disorder, single episode, unspecified; N40.1 Benign prostatic hyperplasia with lower urinary tract symptoms; R26.9 Unspecified abnormalities of gait and mobility; K21.9 Gastro-esophageal reflux disease without esophagitis; I10 Essential (primary) hypertension; F17.210 Nicotine dependence, cigarettes, uncomplicated; Z79.82 Long term (current) use of aspirin; Z79.899 Other long term (current) drug therapy; W19.XXXD Unspecified fall, subsequent encounter
CPT/HCPCS: 36415; 36416; 80048; 80053; 81001; 81003; 81015; 82140; 82550; 84439; 84443; 85025; 87077; 87086; 87186; J0692; J3490; J7050